=== PATIENT | female | born 1995 | race Caucasian/White ===

== ENCOUNTER 2017-03-09 19:33 | Emergency (ER) | payer OTHER ==
[~2017-03-09] VITALS: Ht 167.6 cm; Wt 77.1 kg
[~2017-03-09 19:33] MED LIST: AZIT-21 PO; CYCL10TA9 PO; DULO30CA PO; DULO30CA48 PO; DULO60CA58 PO; DULO60CA6 PO; EPIN0.3A3 IJ; L-NO1TBD PO; LEVO25TA3 PO; LVT.1T PO; PRD20T PO; PROC-1 PO; SMTR50T PO; TRAM50TA2 PO; [UNRECOGNIZED DRUG - REMARK] PO
[2017-03-09] MEDS: predniSONE 20 MG TAB PO ONE (19:58)
[2017-03-09] MEDS: RT-ALBUTEROL/IPRATROPIUM 3 ML (DUONEB) VIAL INH ONE (21:05)
[2017-03-09] MEDS: DEXAMETHASONE PF 10 MG/ML (DECADRON) VIAL IV STA (22:48)
[2017-03-09] MEDS: diphenhydrAMINE 50 MG/ML INJ (BENADRYL) IV STA (22:48)
[2017-03-09] MEDS: NS IV 500 ML 500 ML IV ONE (22:48)
--- NOTE | 2017-03-09 23:23 | ED General ---
General Chief Complaint: Allergic Reaction Stated Complaint: HAD ALLERGIC REACTION/USED EPIPEN Nursing Triage Note: PT STATES SHE HAD AN ALLERGIC RX TO [facility], ATE THEM ABOUT 30 MINUTES AGO, HAS TAKEN BENADRYL, ZANTAC, PEPCID, AND USED AN EPI PEN AT HOME. STATES SHE DID FEEL LIKE HER THROAT WAS SWOLLEN BUT THAT IT HAS GONE DOWN. Nursing Sepsis Screen: No Definite Risk History of Present Illness Time Seen by Provider: 19:50 Initial Comments Patient reports eating a beef barbecue sandwich that must have had tomato base in the sauce. She immediately stopped eating the sandwich and administered her EpiPen, took Benadryl 50 mg by mouth and Pepcid 10 mg by mouth. She felt like there was some swelling in her throat and lips, she denies any difficulty breathing or rash. Timing/Duration: 1/2 Hour Severity: Mild Modifying Factors: improves with Other (EpiPen) Associated Systoms: No Chest Pain, No Cough, No Diaphoresis, No Fever/Chills, No Headaches, No Loss of Appetite, No Malaise, No Nausea/Vomiting, No Rash, No Seizure, No Shortness of Air, No Syncope, No Weakness Allergies and Home Medications Allergies Coded Allergies: tomato (Verified Allergy, Severe, ANAPHYLAXIS, 11/05/13) Home Medications Azithromycin 250 Mg Tab, 1 TAB PO DAILY, #6 (Reported) Duloxetine HCl 30 Mg Capsule.dr, 3 TAB PO DAILY, #30 (Reported) Duloxetine HCl 60 Mg Capsule.dr, 1 TAB PO DAILY, #30 (Reported) Epinephrine 0.3 Mg/0.3 Ml Auto.injct, 0.3 MG IJ NEEDED PRN for allergic reaction, #2 Ref 0 Prescribed by: MARICRUZ SAHNI on 11/21/152100 Epinephrine 0.3 Mg/0.3 Ml Auto.injct, 0.3 MG IJ PRN PRN for RASH, #1 Ref 2 Prescribed by: RUDY CAMPA on 03/09/17 2324 G-Fmezuop-Tfc Estr/Ethin Estra 1 Each Tbdspk.3mo, 1 TAB PO DAILY, #91 (Reported) Levothyroxine Sodium 25 Mcg Tablet, 1 TAB PO DAILY, #30 (Reported) Prednisone 20 Mg Tab, 20 MG PO TID, #12 Ref 0 Prescribed by: MARICRUZ SAHNI on 11/21/152100 Prochlorperazine Maleate 10 Mg Tablet, 10 MG PO Q6H, #10 Ref 0 Prescribed by: MARICRUZ SAHNI on 04/16/162129 Constitutional: no symptoms reported, see HPI EENTM: mouth swelling, see HPI, throat swelling Respiratory: no symptoms reported, see HPI Cardiovascular: no symptoms reported, see HPI Gastrointestinal: no symptoms reported, see HPI Genitourinary: no symptoms reported, see HPI : No (hormonal IUD) Musculoskeletal: no symptoms reported, see HPI Skin: no symptoms reported, see HPI Psychiatric/Neurological: No Symptoms Reported, See HPI Hematologic/Lymphatic: No Symptoms Reported, See HPI Immunological/Allergic: no symptoms reported, see HPI All Other Systems Reviewed Negative Unless Noted: Yes Past Vbzxusf-Mnjweo-Snpjdq Hx Patient Social History Alcohol Use: Denies Use Recreational Drug Use: No Smoking Status: Never a Smoker Recent Foreign Travel: No Contact w/Someone Who Travel: No Recent Infectious Disease Expo: No Seasonal Allergies Seasonal Allergies: No Surgeries HX Surgeries: Yes (NOSE/EAR, SINUS) Respiratory Hx Respiratory Disorders: No Cardiovascular Hx Cardiac Disorders: No Neurological Hx Neurological Disorders: Yes Neurological Disorders: Headaches /Migraines Reproductive System Hx Reproductive Disorders: No HIV/AIDS: No Genitourinary Hx Genitourinary Disorders: No Gastrointestinal Hx Gastrointestinal Disorders: No Musculoskeletal Hx Musculoskeletal Disorders: No Musculoskeletal Disorders: Fibromyalgia Endocrine Hx Endocrine Disorders: Yes Endocrine Disorders: Hypothyroidsim HEENT HX ENT Disorders: No (SEVERAL PROBLEMS W/ L EAR/CHRONIC SINUS INFECTIONS) Cancer Hx Cancer: No Psychosocial Hx Psychiatric Problems: No Integumentary HX Skin/Integumentary Disorder: No Blood Transfusions Hx Blood Disorders: No Adverse Reaction to a Blood Tr: No Reviewed Nursing Assessment Reviewed/Agree w Nursing PMH: Yes Physical Exam Vital Signs Vital Sign - Last 12Hours 03/09/17 03/09/17 19:41 21:06 Temp 96.3 Pulse 112 Resp 24 B/P (MAP) 128/85 Pulse Ox 98 Capillary Refill : Less Than 3 Seconds General Appearance: WD/WN, Anxious Eyes: Bilateral Eye EOMI, Bilateral Eye Normal Inspection, Bilateral Eye PERRL HEENT: PERRL/EOMI, TMs Normal, Normal ENT Inspection, Pharynx Normal, No Pharyngeal Erythema, No Photophobia, Other (lips and tongue nonswollen.) Neck: Full Range of Motion, Normal Inspection, Non Tender, Supple Respiratory: Chest Non Tender, Lungs Clear, Normal Breath Sounds, No Accessory Muscle Use, No Respiratory Distress Cardiovascular: Regular Rate, Rhythm, No Edema, No Murmur, Normal Peripheral Pulses Gastrointestinal: Normal Bowel Sounds, No Organomegaly, No Pulsatile Mass, Non Tender, Soft Back: Normal Inspection, No Vertebral Tenderness Extremity: Normal Capillary Refill, Normal Inspection, Normal Range of Motion, Non Tender, No Calf Tenderness, No Pedal Edema Neurologic/Psychiatric: Alert, Oriented x3, No Motor/Sensory Deficits, Normal Mood/Affect Skin: Normal Color, Warm/Dry, No Diaphoresis, No Ecchymosis, No Erythema, No Petechia, No Rash Lymphatic: No Adenopathy Progress/Results/Core Measures Results/Orders My Orders Orders - RUDY CAMPA Prednisone Tablet (Deltasone Tablet) (03/09/17 20:00) Albuterol/Ipra Inhalation Soln (Duoneb I (03/09/17 21:00) Svn Sm Volume Nebulizer Rt-Rfs (03/09/17 20:57) Discontinue Request Rt-Rfs (03/09/17 20:57) Diphenhydramine Injection (Benadryl Inje (03/09/17 22:32) Dexamethasone Pf Injection (Decadron Pf (03/09/17 22:32) Saline Lock/Iv-Start (03/09/17 22:32) Ns Iv 500 Ml (Sodium Chloride 0.9%) (03/09/17 22:32) Medications Given in ED Current Medications Medications Dose Ordered Sig/Duc Route Start Time Stop Time Status Last Admin Dose Admin Albuterol/ Ipratropium 3 ml ONCE ONCE INH 03/09/17 21:00 03/09/17 21:01 DC 03/09/17 21:05 3 ML Prednisone 20 mg ONCE ONCE PO 03/09/17 20:00 03/09/17 20:01 DC 03/09/17 19:58 20 MG Sodium Chloride 500 ml @ 0 mls/hr Q0M ONCE IV 03/09/17 22:32 03/09/17 22:34 DC 03/09/17 22:48 999 MLS/HR Vital Signs/I&O Vital Sign - Last 12Hours 03/09/17 03/09/17 19:41 21:06 Temp 96.3 Pulse 112 Resp 24 B/P (MAP) 128/85 Pulse Ox 98 Blood Pressure Mean: 99 Progress Note : Time: 19:50 Progress Note Initial evaluation completed, since patient is already given herself epinephrine , Pepcid and Benadryl, we will add prednisone 20 mg by mouth. We will continue to monitor the patient. She understands that since epinephrine was given we will need to monitor for a total of 4 hours. 2044 patient reports that she feels as though there is something in the back of her throat, she denies any dyspnea, she can articulate well with no feelings that her tongue or lips are swollen. We'll do a DuoNeb breathing treatment. 2114 patient reports that her symptoms have improved slightly she does not feel that there is any dyspnea and she has no rash. She is drinking water without difficulty. 2199 patient is watching TV denies any complaints at this time. 2229 patient reports the sensation of something being in the back of her throat is present again, we will give Decadron 10 mg IV and Benadryl 25 mg IV, and continued to monitor. Lung sounds are clear to auscultation bilaterally and no rash present. 0 patient reports that she is feeling better she is drinking water and eating snack crackers. No dysphagia or dyspnea. 2315 discussed discharge planning with the patient, she has an additional EpiPen at home, and Benadryl and Pepcid if symptoms are to return she will use these immediately, call 911 and return to the emergency department. Departure Impression Impression: Primary Impression: Acute allergic reaction Qualified Codes: T78.40XA - Allergy, unspecified, initial encounter Disposition: HOME, SELF-CARE Condition: Improved Departure-Patient Inst. Referrals: NO,LOCAL PHYSICIAN (PCP/Family) Primary Care Physician Patient Instructions: Food Allergy, Anaphylaxis (DC) Add. Discharge Instructions: Continue to avoid tomatoes. Benadryl 25 mg every 8 hours as needed. Return to emergency department immediately if difficulty breathing, feelings of throat lips or tongue or swelling, wheezing, rash, or any new concerns. All discharge instructions reviewed with patient and/or family. Voiced understanding. Scripts Epinephrine (Epipen 2-Sina) 0.3 Mg/0.3 Ml Auto.injct 0.3 MG IJ PRN Y for RASH, #1 ML 2 Refills Prov: RUDY CAMPA 03/09/17 RUDY CAMPA Mar 09, 2017 23:23
[2017-03-09] MEDS ORDERED: EPIN0.3P3 IJ (23:24)
[2017-03-09 23:34] VITALS: BP 117/77
== END 2017-03-09 23:38 | disposition home or self-care (01) ==
LOC: EDUNIT# 19:33 → ER 19:36
DX: R09.89 Other specified symptoms and signs involving the circulatory and respiratory systems (principal); T78.1XXA Other adverse food reactions, not elsewhere classified, initial encounter; E03.9 Hypothyroidism, unspecified
CPT/HCPCS: 94640; 94664

== ENCOUNTER → 2018-06-06 | Outpatient (CLI) | payer OTHER ==
[~2018-06-06] MED LIST changes: -EPIN0.3A3 IJ; +EPIN0.3P18 IJ; +EPIN0.3P3 IJ
--- NOTE | 2018-06-06 16:10 | Diagnostic Imaging Report ---
PROCEDURE: US Thyroid. TECHNIQUE: Multiple real-time grayscale images were obtained of the thyroid in various projections. INDICATION: Hypothyroidism and dysphagia. FINDINGS: The right lobe of the thyroid measures 3.9 x 1.4 x 1.4 cm and the left lobe measures 4.1 x 1.4 x 1.5 cm. Both lobes demonstrate marked parenchymal heterogeneity. No discrete thyroid mass is detected. IMPRESSION: Heterogeneous thyroid. No discrete mass is detected. Dictated by: Dictated on workstation # [id number]
== END ==
LOC: RAD 15:16
PROVIDERS: ATTEND Nurse Practitioner Family
DX: E03.9 Hypothyroidism, unspecified (principal); R13.10 Dysphagia, unspecified
CPT/HCPCS: 76536

== ENCOUNTER 2019-08-09 07:10 | Emergency (ER) | payer OTHER ==
[~2019-08-09] VITALS: Ht 167.7 cm; Wt 101.8 kg
[2019-08-09] MEDS ORDERED: SULF1TAB35 PO (07:30)
--- NOTE | 2019-08-09 07:30 | ED Integumentary General ---
General Chief Complaint: Skin/Wound Problems Stated Complaint: SKIN INFECTION Source: patient Exam Limitations: no limitations History of Present Illness Date Seen by Provider: Aug 09, 2019 Time Seen by Provider: 07:25 Initial Comments 23-year-old female presents with a small abscess in her navel. She has had this in the past. She reports she been on Keflex for about 4 days. She reports normally gets better in a day or 2 but this time is getting worse. Patient has some mild drainage from it. No other systemic complaints Allergies and Home Medications Allergies Coded Allergies: tomato (Verified Allergy, Severe, ANAPHYLAXIS, 11/05/13) Home Medications Azithromycin 250 Mg Tab, 1 TAB PO DAILY, (Reported) Duloxetine HCl 30 Mg Capsule.dr, 3 TAB PO DAILY, (Reported) Duloxetine HCl 60 Mg Capsule.dr, 1 TAB PO DAILY, (Reported) Epinephrine 0.3 Mg/0.3 Ml Auto.injct, 0.3 MG IJ NEEDED PRN for allergic reaction Prescribed by: MARICRUZ SAHNI on 11/21/152100 Epinephrine 0.3 Mg/0.3 Ml Auto.injct, 0.3 MG IJ PRN PRN for RASH Prescribed by: RUDY CAMPA on 03/09/17 2324 V-Khypizw-Rbg Estr/Ethin Estra 1 Each Tbdspk.3mo, 1 TAB PO DAILY, (Reported) Levothyroxine Sodium 25 Mcg Tablet, 1 TAB PO DAILY, (Reported) Prednisone 20 Mg Tab, 20 MG PO TID Prescribed by: MARICRUZ SAHNI on 11/21/152100 Prochlorperazine Maleate 10 Mg Tablet, 10 MG PO Q6H Prescribed by: MARICRUZ SAHNI on 04/16/162129 Patient Home Medication List Home Medication List Reviewed: Yes Review of Systems Review of Systems Constitutional: No chills, No fever Respiratory: no symptoms reported Cardiovascular: no symptoms reported Gastrointestinal: no symptoms reported Genitourinary: no symptoms reported Skin: see HPI Past Wlvnyyq-Ujvxjm-Hotdod Hx Past Med/Social Hx: Reviewed Nursing Past Med/Soc Hx Patient Social History Recent Foreign Travel: No Contact w/Someone Who Travel: No Seasonal Allergies Seasonal Allergies: No Past Medical History Surgeries: Yes (NOSE/EAR, SINUS) Respiratory: No Cardiac: No Neurological: Yes Headaches /Migraines Reproductive Disorders: No HIV/AIDS: No Gastrointestinal: No Musculoskeletal: No Fibromyalgia Endocrine: Yes Hypothyroidsim Cancer: No Psychosocial: No Integumentary: No Blood Disorders: No Adverse Reaction/Blood Tranf: No Physical Exam Vital Signs Capillary Refill : General Appearance: WD/WN, no apparent distress Cardiovascular: regular rate, rhythm, no edema Respiratory: lungs clear, normal breath sounds Gastrointestinal: soft Skin: other (small abscess/induration with mild erythema and drainage in the navel.) Departure Impression Primary Impression: Cutaneous abscess of abdominal wall Disposition: HOME, SELF-CARE Condition: Stable Departure-Patient Inst. Referrals: TERESA MAHMOOD MD (PCP) Primary Care Physician [employer] STUDENT [facility] (Family) Primary Care Physician Patient Instructions: Folliculitis (DC), Skin Abscess Scripts Sulfamethoxazole/Trimethoprim (Bactrim Ds Tablet) 1 Each Tablet 1 EACH PO BID for 10 Days, #20 TAB Prov: ASHTYN CRUZ DO 08/09/19 ASHTYN CRUZ DO Aug 09, 2019 07:30 POS
[2019-08-09 07:34] VITALS: BP 131/80
== END 2019-08-09 07:34 | disposition home or self-care (01) ==
LOC: EDUNIT# 07:10 → ER 07:11
DX: L02.211 Cutaneous abscess of abdominal wall (principal); G43.909 Migraine, unspecified, not intractable, without status migrainosus; M79.7 Fibromyalgia; E03.9 Hypothyroidism, unspecified; Z79.52 Long term (current) use of systemic steroids
CPT/HCPCS: 99282

== ENCOUNTER → 2020-08-17 | Outpatient (CLI) | payer OTHER ==
[~2020-08-17] MED LIST changes: +SULF1TAB35 PO
--- NOTE | 2020-08-17 11:25 | Diagnostic Imaging Report ---
INDICATION: survey. TECHNIQUE: Multiple Real-time grayscale images were obtained over the gravid uterus. COMPARISON: None. FINDINGS: There is a single live fetus in a cephalic presentation. The heart rate was recorded 134 BPM. The placenta is anterior. The amniotic fluid volume is normal. The cervical length is 5.7 cm. The kidneys, bladder, and stomach are unremarkable. The brain is unremarkable. There is a three-vessel cord with normal insertion. The spine is unremarkable. The four-chamber heart view is somewhat limited. Biometrical measurements are as follows: Biparietal 4.58 cm, age 19 weeks 6 days. Head circumference 16.26 cm, age 19 weeks 1 days. Abdominal circumference 15.02 cm, age 20 weeks 2 days. Femur length 3.09 cm, age 19 weeks 5 days. Sonographic estimate age: 19 weeks 6 days. Sonographic estimated date of delivery: 01/05/2021. Estimated Weight: 317 gm (+/- 46 gm). LMP percentile: 23%. heart rate: 134 beats per minute. number: 1 of 1. IMPRESSION: Single live IUP of 19 weeks 6 days gestational age. The estimated date of confinement sonographically is 01/05/2021. The survey is unremarkable although the four-chamber heart view is somewhat limited. Dictated by: Dictated on workstation # [id number]
== END ==
LOC: RAD 10:00
PROVIDERS: ATTEND Obstetrics & Gynecology
DX: Z34.02 Encounter for supervision of normal first pregnancy, second trimester (principal); Z3A.19 19 weeks gestation of pregnancy
CPT/HCPCS: 76805

== ENCOUNTER 2020-09-22 21:47 | Emergency (ER) | payer OTHER ==
[~2020-09-22] VITALS: Ht 167.6 cm; Wt 111.5 kg
[2020-09-22] MEDS ORDERED: LACTATED RINGERS 1,000 ML IV ONE (22:00)
[2020-09-22] MEDS ORDERED: hydrOXYzine (VISTARIL/ATARAX) 25 MG capsule/tablet PO ONE (22:00)
[2020-09-22] MEDS ORDERED: LORATADINE (CLARITIN) 10 MG TAB PO ONE (22:00)
--- NOTE | 2020-09-22 22:02 | ED General ---
General Chief Complaint: Allergic Reaction Stated Complaint: SWOLLEN TONGUE/RACING HEART BEAT/SOA/25 WEEKS PREG Source of Information: Patient Exam Limitations: No Limitations History of Present Illness Date Seen by Provider: Sep 22, 2020 Time Seen by Provider: 21:47 Initial Comments The patient presents to the ER by private conveyance from home with chief complaint that she feels her tongue is swelling and that she is having a minor reaction to her known allergen tomatoes. She ate some pizza from [employer] that was not supposed to have any tomatoes on it. Her symptoms started about an hour ago shortly after she ate. She says she was doing okay and did not feel the need to use her EpiPen however her felt that she was having a swollen cheeks and tongue and wanted her to be checked out. She took Benadryl 2 tablets at 530, 4-1/2 hours ago related to some sinus congestion she has been experiencing. She is 25 weeks and had a neurology appointment about a week ago regarding her migraines that are chronic. She is not having a headache at this time. She is not having a difficult time breathing but felt like she was wheezing. Allergies and Home Medications Allergies Coded Allergies: tomato (Verified Allergy, Severe, ANAPHYLAXIS, 11/05/13) Home Medications Azithromycin 250 Mg Tab, 1 TAB PO DAILY, (Reported) Duloxetine HCl 30 Mg Capsule.dr, 3 TAB PO DAILY, (Reported) Duloxetine HCl 60 Mg Capsule.dr, 1 TAB PO DAILY, (Reported) Epinephrine 0.3 Mg/0.3 Ml Auto.injct, 0.3 MG IJ NEEDED PRN for allergic reaction Prescribed by: MARICRUZ SAHNI on 11/21/152100 Epinephrine 0.3 Mg/0.3 Ml Auto.injct, 0.3 MG IJ PRN PRN for RASH Prescribed by: RUDY CAMPA on 03/09/17 2324 L-Hjmctjz-Pno Estr/Ethin Estra 1 Each Tbdspk.3mo, 1 TAB PO DAILY, (Reported) Levothyroxine Sodium 25 Mcg Tablet, 1 TAB PO DAILY, (Reported) Prednisone 20 Mg Tab, 20 MG PO TID Prescribed by: MARICRUZ SAHNI on 11/21/152100 Prochlorperazine Maleate 10 Mg Tablet, 10 MG PO Q6H Prescribed by: MARICRUZ SAHNI on 04/16/162129 Sulfamethoxazole/Trimethoprim 1 Each Tablet, 1 EACH PO BID Prescribed by: ASHTYN CRUZ on 08/09/19 6133 Patient Home Medication List Home Medication List Reviewed: Yes Review of Systems Review of Systems Constitutional: No chills, No diaphoresis EENTM: No ear discharge, No ear pain Respiratory: No cough; short of breath Cardiovascular: No chest pain, No edema, No Hx of Intervention, No palpitations Gastrointestinal: No abdominal pain, No nausea Genitourinary: No discharge, No dysuria Musculoskeletal: No back pain, No joint pain Immunological/Allergic: see HPI, food allergy All Other Systems Reviewed Negative Unless Noted: Yes Past Nqmgkxj-Hmekfn-Rdlfve Hx Patient Social History Alcohol Use: Denies Use Recreational Drug Use: No 2nd Hand Smoke Exposure: No Recent Foreign Travel: No Contact w/Someone Who Travel: No Physical Abuse: No Sexual Abuse: No Mistreated: No Fear: No Immunizations Up To Date Tetanus Booster (TDap): Unknown PED Vaccines UTD: Yes Seasonal Allergies Seasonal Allergies: Yes Past Medical History Surgeries: Yes (NOSE/EAR, SINUS) Respiratory: No Cardiac: No Neurological: Yes Headaches /Migraines Reproductive Disorders: No HIV/AIDS: No Gastrointestinal: No Musculoskeletal: No Fibromyalgia Endocrine: Yes Hypothyroidsim Cancer: No Psychosocial: Yes Anxiety, Depression Integumentary: No Blood Disorders: No Adverse Reaction/Blood Tranf: No Physical Exam Vital Signs Vital Signs - First Documented 09/22/20 21:50 Temp 36.2 Pulse 117 Resp 20 B/P (MAP) 133/104 (114) Pulse Ox 96 O2 Delivery Room Air Capillary Refill : Height, Weight, BMI Height: 5'6.00" Weight: 170lbs. oz. 77.294200il; 36.00 BMI Method:Stated General Appearance: WD/WN, Anxious, Mild Distress Eyes: Bilateral Eye Normal Inspection, Bilateral Eye PERRL, Bilateral Eye EOMI HEENT: PERRL/EOMI, Pharynx Normal, Moist Mucous Membranes, Other (No tenderness to palpation over the sinuses frontal, or maxillary) Neck: Full Range of Motion, Normal Inspection, Non Tender, Supple Respiratory: Lungs Clear, Normal Breath Sounds, No Accessory Muscle Use, No Respiratory Distress Cardiovascular: Regular Rate, Rhythm, Normal Peripheral Pulses Extremity: Normal Capillary Refill, Normal Inspection Neurologic/Psychiatric: Alert, Oriented x3, No Motor/Sensory Deficits Skin: Normal Color, Warm/Dry Progress/Results/Core Measures Suspected Sepsis SIRS Temperature: Pulse: Respiratory Rate: Laboratory Tests 09/22/20 21:55: White Blood Count 8.1 Blood Pressure / Mean: Laboratory Tests 09/22/20 21:55: Creatinine 0.60, Platelet Count 265, Total Bilirubin 0.2 Results/Orders Lab Results Laboratory Tests Test 09/22/20 21:55 Range/Units White Blood Count 8.1 4.3-11.0 10^3/uL Red Blood Count 3.62 L 3.80-5.11 10^6/uL Hemoglobin 10.3 L 11.5-16.0 g/dL Hematocrit 31 L 35-52 % Mean Corpuscular Volume 86 80-99 fL Mean Corpuscular Hemoglobin 29 25-34 pg Mean Corpuscular Hemoglobin Concent 33 32-36 g/dL Red Cell Distribution Width 12.6 10.0-14.5 % Platelet Count 265 130-400 10^3/uL Mean Platelet Volume 10.2 9.0-12.2 fL Immature Granulocyte % (Auto) 1 % Neutrophils (%) (Auto) 66 42-75 % Lymphocytes (%) (Auto) 26 12-44 % Monocytes (%) (Auto) 7 0-12 % Eosinophils (%) (Auto) 1 0-10 % Basophils (%) (Auto) 0 0-10 % Neutrophils # (Auto) 5.3 1.8-7.8 10^3/uL Lymphocytes # (Auto) 2.1 1.0-4.0 10^3/uL Monocytes # (Auto) 0.6 0.0-1.0 10^3/uL Eosinophils # (Auto) 0.1 0.0-0.3 10^3/uL Basophils # (Auto) 0.0 0.0-0.1 10^3/uL Immature Granulocyte # (Auto) 0.0 0.0-0.1 10^3/uL Sodium Level 138 135-145 MMOL/L Potassium Level 3.7 3.6-5.0 MMOL/L Chloride Level 110 H 98-107 MMOL/L Carbon Dioxide Level 17 L 21-32 MMOL/L Anion Gap 11 5-14 MMOL/L Blood Urea Nitrogen 5 L 7-18 MG/DL Creatinine 0.60 0.60-1.30 MG/DL Estimat Glomerular Filtration Rate > 60 BUN/Creatinine Ratio 8 Glucose Level 102 70-105 MG/DL Calcium Level 8.7 8.5-10.1 MG/DL Corrected Calcium 9.1 8.5-10.1 MG/DL Total Bilirubin 0.2 0.1-1.0 MG/DL Aspartate Amino Transf (AST/SGOT) 13 5-34 U/L Alanine Aminotransferase (ALT/SGPT) 13 0-55 U/L Alkaline Phosphatase 79 40-136 U/L Total Protein 6.3 L 6.4-8.2 GM/DL Albumin 3.5 3.2-4.5 GM/DL My Orders Orders - PATRICK WATTS Ed Iv/Invasive Line Start (09/22/20 21:57) Lactated Ringers (Lr 1000 Ml Iv Solution (09/22/20 22:00) Loratadine Tablet (Claritin Tablet) (09/22/20 22:00) Hydroxyzine Cap/Tab (Vistaril) (09/22/20 22:00) Cbc With Automated Diff (09/22/20 22:02) Comprehensive Metabolic Panel (09/22/20 22:02) Medications Given in ED Current Medications Medications Dose Ordered Sig/Duc Route Start Time Stop Time Status Last Admin Dose Admin Hydroxyzine Pamoate 25 mg ONCE ONCE PO 09/22/20 22:00 09/22/20 22:01 DC 09/22/20 22:03 25 MG Lactated Ringer's 1,000 ml @ 0 mls/hr Q0M ONCE IV 09/22/20 22:00 09/22/20 22:01 DC 09/22/20 22:02 1,000 MLS/HR Loratadine 10 mg ONCE ONCE PO 09/22/20 22:00 09/22/20 22:01 DC 09/22/20 22:05 10 MG Vital Signs/I&O 09/22/20 21:50 Temp 36.2 Pulse 117 Resp 20 B/P (MAP) 133/104 (114) Pulse Ox 96 O2 Delivery Room Air Capillary Refill : Progress Note #1: Time: 22:00 Progress Note The patient was tachypneic when she arrived however her throat and retropharynx are normal mildly injected and without significant glossal swelling or other airway obstruction. She has no stridor or wheezing. Her oxygen sats are 100% on room air. Suspect she is having a little anxiety attack and were going to give her some Vistaril which we will do dual duty as well as loratadine. Plan to check some basic labs and observe her for a short while. She is already coming down after some gentle coaching. Progress Note #2: Time: 22:30 Progress Note After a period of observation the patient's symptoms are improving. She has not had any worsening symptoms. She has no longer hyperventilating and she is ready to go home. We are going to allow her to go home. She says she is lives a couple blocks away and has someone who stays with her. She also has her EpiPen in her purse. We have given return precautions Departure Impression Primary Impression: Acute allergic reaction Qualified Codes: T78.40XA - Allergy, unspecified, initial encounter Disposition: 01 HOME, SELF-CARE Condition: Stable Departure-Patient Inst. Decision time for Depature: 22:31 Referrals: TERESA MAHMOOD MD (PCP/Family) Primary Care Physician Patient Instructions: Allergic Reaction ED Add. Discharge Instructions: By 11PM you may take another 1 to 2 tablets of Benadryl if necessary for worseni ng symptoms. Continue taking loratadine 10 mg or cetirizine 10 mg daily until your symptoms resolved. If you're having worsening symptoms or difficulty breathing you may take a dose of epinephrine and return to the ER for further evaluation. All discharge instructions reviewed with patient and/or family. Voiced understanding. PATRICK WATTS Sep 22, 2020 22:02
[2020-09-22 22:10] LABS: BASOPHILS % (AUTO) 0 % (0-10); EOSINOPHILS # (AUTO) 0.1 10^3/uL (0.0-0.3); EOSINOPHILS % (AUTO) 1 % (0-10); HEMATOCRIT 31 % (35-52); HEMOGLOBIN 10.3 g/dL (11.5-16.0); LYMPHOCYTES # (AUTO) 2.1 10^3/uL (1.0-4.0); LYMPHOCYTES % (AUTO) 26 % (12-44); MEAN CORPUSCULAR HEMOGLOBIN 29 pg (25-34); MEAN CORPUSCULAR HGB CONC 33 g/dL (32-36); MEAN CORPUSCULAR VOLUME 86 fL (80-99); MEAN PLATELET VOLUME 10.2 fL (9.0-12.2); MONOCYTES # (AUTO) 0.6 10^3/uL (0.0-1.0); MONOCYTES % (AUTO) 7 % (0-12); NEUTROPHILS # (AUTO) 5.3 10^3/uL (1.8-7.8); NEUTROPHILS % (AUTO) 66 % (42-75); PLATELET COUNT 265 10^3/uL (130-400); WHITE BLOOD COUNT 8.1 10^3/uL (4.3-11.0)
[2020-09-22 22:14] LABS: ALBUMIN 3.5 GM/DL (3.2-4.5)
[2020-09-22 22:15] LABS: CHLORIDE 110 MMOL/L (98-107); POTASSIUM 3.7 MMOL/L (3.6-5.0); SODIUM 138 MMOL/L (135-145)
[2020-09-22 22:16] LABS: CALCIUM 8.7 MG/DL (8.5-10.1)
[2020-09-22 22:17] LABS: GLUCOSE 102 MG/DL (70-105); TOTAL PROTEIN 6.3 GM/DL (6.4-8.2)
[2020-09-22 22:18] LABS: CARBON DIOXIDE 17 MMOL/L (21-32)
[2020-09-22 22:19] LABS: BILIRUBIN,TOTAL 0.2 MG/DL (0.1-1.0)
[2020-09-22 22:20] LABS: ALKALINE PHOSPHATASE 79 U/L (40-136)
[2020-09-22 22:21] LABS: GFR ESTIMATED > 60
[2020-09-22 22:22] LABS: BUN/CREATININE RATIO 8
[2020-09-22 22:23] LABS: ALANINE AMINOTRANSFERASE 13 U/L (0-55)
[2020-09-22 22:38] VITALS: BP 110/70
== END 2020-09-22 22:43 | disposition home or self-care (01) ==
LOC: EDUNIT# 21:47 → ER 21:49
DX: T78.40XA Allergy, unspecified, initial encounter (principal); F41.9 Anxiety disorder, unspecified; F32.9 Major depressive disorder, single episode, unspecified; E03.9 Hypothyroidism, unspecified; Z79.890 Hormone replacement therapy; Z79.52 Long term (current) use of systemic steroids
CPT/HCPCS: 36415; 80053; 85025

== ENCOUNTER 2020-10-06 08:13 | Emergency (ER) | payer OTHER ==
[~2020-10-06] VITALS: Ht 167.7 cm; Wt 111.3 kg
[2020-10-06] MEDS ORDERED: LIDOCAINE 1% INJ 20 ML 20 ML VIAL INJ ONE (08:45)
--- NOTE | 2020-10-06 08:48 | ED Integumentary General ---
General Chief Complaint: Skin/Wound Problems Stated Complaint: ABCESS ON [facility] Nursing Triage Note: AMB TO ROOM REPORTS IS APX 27 WEEKS PREG HAS A ABSCESS ON BACK AREA AROUND BUTTOCKS. WAS SEEN AT URGENT CARE YESTERDAY AND STARTED ON KEFLEX Source: patient Exam Limitations: no limitations History of Present Illness Date Seen by Provider: Oct 06, 2020 Time Seen by Provider: 08:35 Initial Comments Here with report of area of pain and swelling to the upper buttocks region at midline. Concern for abscess. Started on cephalexin yesterday but pain is worsened. She is [address] weeks [address] CALI. Denies having ever having anything like this before. Denies problems with bowel movements or dysuria. Denies fever chills. Has had some nausea and vomiting secondary to pain. Timing/Duration: other (3 to 4 days) Severity: moderate Location: genitalia (Midline upper buttock) Possible Cause: no cause identified Associated Symptoms: No fever Allergies and Home Medications Allergies Coded Allergies: tomato (Verified Allergy, Severe, ANAPHYLAXIS, 11/05/13) Home Medications Azithromycin 250 Mg Tab, 1 TAB PO DAILY, (Reported) Duloxetine HCl 30 Mg Capsule.dr, 3 TAB PO DAILY, (Reported) Duloxetine HCl 60 Mg Capsule.dr, 1 TAB PO DAILY, (Reported) Epinephrine 0.3 Mg/0.3 Ml Auto.injct, 0.3 MG IJ NEEDED PRN for allergic reaction Prescribed by: MARICRUZ SAHNI on 11/21/152100 Epinephrine 0.3 Mg/0.3 Ml Auto.injct, 0.3 MG IJ PRN PRN for RASH Prescribed by: RUDY CAMPA on 03/09/17 2324 L-Qyqyhmm-Ona Estr/Ethin Estra 1 Each Tbdspk.3mo, 1 TAB PO DAILY, (Reported) Levothyroxine Sodium 25 Mcg Tablet, 1 TAB PO DAILY, (Reported) Prednisone 20 Mg Tab, 20 MG PO TID Prescribed by: MARICRUZ SAHNI on 11/21/152100 Prochlorperazine Maleate 10 Mg Tablet, 10 MG PO Q6H Prescribed by: MARICRUZ SAHNI on 04/16/162129 Sulfamethoxazole/Trimethoprim 1 Each Tablet, 1 EACH PO BID Prescribed by: ASHTYN CRUZ on 08/09/19 0730 Patient Home Medication List Home Medication List Reviewed: Yes Review of Systems Review of Systems Constitutional: No chills, No fever Respiratory: no symptoms reported Cardiovascular: no symptoms reported Gastrointestinal: nausea, vomiting Genitourinary: no symptoms reported Expected Date of Delivery: Mar 02, 2021 Skin: see HPI, lesions; No pruritus, No rash Psychiatric/Neurological: No Symptoms Reported Past Zjicdbv-Ahfyub-Sxboyi Hx Past Med/Social Hx: Reviewed Nursing Past Med/Soc Hx Patient Social History Alcohol Use: Denies Use Recreational Drug Use: No Smoking Status: Never a Smoker 2nd Hand Smoke Exposure: No Recent Foreign Travel: No Contact w/Someone Who Travel: No Recent Infectious Disease Expo: No Immunizations Up To Date Tetanus Booster (TDap): Unknown PED Vaccines UTD: Yes Seasonal Allergies Seasonal Allergies: Yes Past Medical History Surgeries: Yes (NOSE/EAR, SINUS) Respiratory: No Cardiac: No Neurological: Yes Headaches /Migraines : Yes Expected Date of Delivery: Mar 02, 2021 Last Menstrual Period: Mar 02, 2020 Hx : 1 Hx Para: 0 Reproductive Disorders: No HIV/AIDS: No Gastrointestinal: No Musculoskeletal: No Fibromyalgia Endocrine: Yes Hypothyroidsim Cancer: No Psychosocial: Yes Anxiety, Depression Integumentary: No Blood Disorders: No Adverse Reaction/Blood Tranf: No Family Medical History Reviewed Nursing Family Hx Physical Exam Vital Signs Vital Signs - First Documented 10/06/20 08:25 Temp 35.8 Pulse 100 Resp 18 B/P (MAP) 138/78 (98) Pulse Ox 98 O2 Delivery Room Air Capillary Refill : Less Than 3 Seconds General Appearance: WD/WN, no apparent distress Cardiovascular: regular rate, rhythm, no murmur Respiratory: lungs clear, normal breath sounds Skin: warm/dry, other (2 x 3 cm area of induration/fluctuance to the midline upper buttock region consistent with pilonidal cyst. Mild surrounding erythema.) Procedures/Interventions I&D : Site: Midline upper buttocks Blade Size: 11 I & D Procedure: betadine prep, sterile drapes applied, gauze wick placed, Wound Packing Packing/Drain: Plain Packing 1/2 Progress Wound prepped with iodine. Anesthetized with 12 mL of lidocaine local surrounding cyst/abscess. 2 cm incision vertically to the cyst at the upper buttock. Large amount of purulent drainage obtained. Loculations broken with Sheila forceps and gauze. Cavity flushed with 150 mL of normal saline. Packed with half-inch plain packing and covered with gauze and dressing. Patient tolerated procedure well with no complications. Wound culture obtained. Progress/Results/Core Measures Results/Orders My Orders Orders - KANDICE TENA MD Wound Culture (10/06/20 08:44) Lidocaine 1% Inj 20 Ml (Xylocaine 1% Inj (10/06/20 08:45) Vital Signs/I&O 10/06/20 08:25 Temp 35.8 Pulse 100 Resp 18 B/P (MAP) 138/78 (98) Pulse Ox 98 O2 Delivery Room Air Blood Pressure Mean: 98 Progress Progress Note : Progress Note Seen and evaluated. I did discuss the risk and benefits of I&D including l idocaine administration while . Patient accepts risks and would like to pursue I&D. 0927: I&D complete. Tolerated procedure well with no complications. Discharged home with return precautions. Patient verbalized understanding of instructions and agreement with plan. Departure Impression Primary Impression: Pilonidal cyst with abscess Additional Impression: Encounter for incision and drainage procedure Disposition: HOME, SELF-CARE Condition: Improved Departure-Patient Inst. Decision time for Depature: 09:21 Referrals: TERESA MAHMOOD MD (PCP/Family) Primary Care Physician Patient Instructions: Pilonidal Cyst (DC), Abscess Incision and Drainage ED Add. Discharge Instructions: All discharge instructions reviewed with patient and/or family. Voiced understanding. Continue antibiotics as previously prescribed. Return in 2 days for recheck and further evaluation and for packing removal. You may take the prescribed pain medicine as prescribed. If you are not taking that, then you may take Tylenol/acetaminophen 1000 mg every 6-8 hours as needed for pain. Do not take both at the same time as they both have acetaminophen in them. You may change top dressing as needed if it becomes soiled. Keep packing in place. Clean after bowel movements with a shower sprayer or similar. Do not vigorously scrub area. If packing were to come out, it is okay but you will need to clean the area a few times daily with the gentle warm water spray. Return for worse pain, fever, vomiting, difficulty with going to the bathroom or other concerns as needed. Scripts Hydrocodone/Acetaminophen (Hydrocodone-Acetamin 5-325 mg) 1 Each Tablet 1 EACH PO Q6H PRN for PAIN-MODERATE (5-7), #8 TAB 0 Refills Prov: KANDICE TENA MD 10/06/20 Copy Copies To 1: CLYDE CALI TIMOTHY D MD Oct 06, 2020 08:48
[2020-10-06] MEDS ORDERED: ACHD5005 PO (09:24)
[2020-10-06 09:33] VITALS: BP 138/78
== END 2020-10-06 09:32 | disposition home or self-care (01) ==
LOC: EDUNIT# 08:13 → ER 08:17
DX: O99.712 Diseases of the skin and subcutaneous tissue complicating pregnancy, second trimester (principal); L05.01 Pilonidal cyst with abscess; O21.2 Late vomiting of pregnancy; O99.342 Other mental disorders complicating pregnancy, second trimester; F41.9 Anxiety disorder, unspecified; F32.9 Major depressive disorder, single episode, unspecified; O99.282 Endocrine, nutritional and metabolic diseases complicating pregnancy, second trimester; E03.9 Hypothyroidism, unspecified; Z79.2 Long term (current) use of antibiotics; Z79.52 Long term (current) use of systemic steroids; Z79.890 Hormone replacement therapy; Z3A.27 27 weeks gestation of pregnancy
CPT/HCPCS: 10061; 87070; 87205

== ENCOUNTER 2020-10-08 08:10 | Emergency (ER) | payer OTHER ==
[~2020-10-08] VITALS: Ht 167.7 cm; Wt 111.1 kg
[~2020-10-08 08:10] MED LIST changes: +ACHD5005 PO
--- NOTE | 2020-10-08 08:51 | ED Integumentary General ---
General Chief Complaint: Skin/Wound Problems Stated Complaint: ABSCESS ON TAILBONE Nursing Triage Note: PT AMB TO RM 6 FOR WOUND CHECK AND WORSENING PAIN. PT WAS SEEN HERE A FEW DAYS AND HAD ABSCESS DRAINED AND PACKED. STATES WAS INSTRUCTED TO COME BACK TO HAVE WOUND CHECKED AND PACKING REMOVED. STATES SHE IS HAVING INCREASING PAIN. Source: patient Exam Limitations: no limitations (JAQUELINE RECINOS MED STUDENT) History of Present Illness Date Seen by Provider: Oct 08, 2020 Time Seen by Provider: 08:35 Initial Comments 24 y/o at 27 weeks gestational age presents to the Emergency Department for complaints of a skin abscess. Pt states the abscess on her tailbone was incised and drained 2 days ago. Pt was taking Keflex because of her . Pt noticed her pain returned as 6/10 pain that was throbbing and burning. She and her significant other had been changing the dressings every 2-4 hours because the 4x4's were saturated with blood and yellow pus. Pt had chills, sweating, exhaustion, and lethargy. Pt felt like she had a fever but denies a high temperature. Pain is worse with touching and hydrocodeine helped until yesterday. Pt had previous belly button abscess from a scratch that burst on it's own and pt took antibiotics. PMHx: hypothyroid, food allergy, depression, PSHx: ear and sinus surgeries FamHx: hyperthyroid, heart condition, migraines Meds: levothyroxin (175 mg), Prozac,, propranolol, reglan, iron, keflex, hydrocodeine allergy to meds: none SocHx: former smoker, no alcohol, no drugs (JAQUELINE RECINOS MED STUDENT) Allergies and Home Medications Allergies Coded Allergies: tomato (Verified Allergy, Severe, ANAPHYLAXIS, 11/05/13) Home Medications Azithromycin 250 Mg Tab, 1 TAB PO DAILY, (Reported) Duloxetine HCl 30 Mg Capsule.dr, 3 TAB PO DAILY, (Reported) Duloxetine HCl 60 Mg Capsule.dr, 1 TAB PO DAILY, (Reported) Epinephrine 0.3 Mg/0.3 Ml Auto.injct, 0.3 MG IJ NEEDED PRN for allergic reaction Prescribed by: MARICRUZ SAHNI on 11/21/152100 Epinephrine 0.3 Mg/0.3 Ml Auto.injct, 0.3 MG IJ PRN PRN for RASH Prescribed by: RUDY CAMPA on 03/09/17 2324 Hydrocodone/Acetaminophen 1 Each Tablet, 1 EACH PO Q6H PRN for PAIN-MODERATE (5- 7) Prescribed by: KANDICE TENA on 10/06/20 0925 Hydrocodone/Acetaminophen 1 Each Tablet, 1 EACH PO Q6H PRN for PAIN-MODERATE (5- 7) Prescribed by: TEX SHORT on 10/08/20 0946 R-Qgvjzdl-Avf Estr/Ethin Estra 1 Each Tbdspk.3mo, 1 TAB PO DAILY, (Reported) Levothyroxine Sodium 25 Mcg Tablet, 1 TAB PO DAILY, (Reported) Prednisone 20 Mg Tab, 20 MG PO TID Prescribed by: MARICRUZ SAHNI on 11/21/15 210 Prochlorperazine Maleate 10 Mg Tablet, 10 MG PO Q6H Prescribed by: MARICRUZ SAHNI on 04/16/16 213 Sulfamethoxazole/Trimethoprim 1 Each Tablet, 1 EACH PO BID Prescribed by: ASHTYN CRUZ on 08/09/19 0730 Sulfamethoxazole/Trimethoprim 1 Each Tablet, 1 EACH PO BID Prescribed by: TEX SHORT on 10/08/20 0945 Patient Home Medication List Home Medication List Reviewed: Yes (TEX MANCERA MD) Review of Systems Review of Systems Constitutional: chills, diaphoresis, malaise, other (feverish) Skin: lesions (drainage from abscess) (JAQUELINE RECINOS STUDENT) EENTM: no symptoms reported Respiratory: no symptoms reported Cardiovascular: no symptoms reported Gastrointestinal: no symptoms reported Genitourinary: no symptoms reported : Yes Musculoskeletal: no symptoms reported Skin: see HPI Psychiatric/Neurological: No Symptoms Reported (TEX MANCERA MD) Past Vwvefya-Eogutz-Lkpwwl Hx Past Med/Social Hx: Reviewed Nursing Past Med/Soc Hx (TEX MANCERA MD) Patient Social History Alcohol Use: Denies Use Recreational Drug Use: No Smoking Status: Former Smoker (1-2 cigarettes/day for 3 months in 2012) Type Used: Cigarettes 2nd Hand Smoke Exposure: No Recent Foreign Travel: No Contact w/Someone Who Travel: No Recent Infectious Disease Expo: No (JAQUELINE RECINOS STUDENT) Immunizations Up To Date Tetanus Booster (TDap): Unknown PED Vaccines UTD: Yes (JAQUELINE RECINOS [employer] STUDENT) Seasonal Allergies Seasonal Allergies: Yes (JAQUELINE RECINOS [employer] STUDENT) Past Medical History Surgeries: Yes (NOSE/EAR, SINUS) Respiratory: No Cardiac: No Neurological: Yes Headaches /Migraines Reproductive Disorders: No HIV/AIDS: No Gastrointestinal: No Musculoskeletal: No Fibromyalgia Endocrine: Yes Hypothyroidsim Cancer: No Psychosocial: Yes Anxiety, Depression Integumentary: No Blood Disorders: No Adverse Reaction/Blood Tranf: No (JAQUELINE RECINOS [employer] STUDENT) Family Medical History Heart Disease, Migraines, Other Conditions/Hx (yperthyroidism) (JAQUELINE RECINOS [employer] STUDENT) Physical Exam Vital Signs Vital Signs - First Documented 10/08/20 08:21 Temp 36.1 Pulse 90 Resp 20 B/P (MAP) 123/82 (96) Pulse Ox 95 O2 Delivery Room Air (TEX MANCERA MD) Vital Signs Capillary Refill : Less Than 3 Seconds (JAQUELINE RECINOS [employer] STUDENT) General Appearance: WD/WN, no apparent distress HEENT: normal ENT inspection Cardiovascular: regular rate, rhythm, no edema, no murmur Respiratory: lungs clear, normal breath sounds, no respiratory distress Extremities: normal inspection Neurologic/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 No local associated inflammation) (TEX MANCERA MD) Progress/Results/Core Measures Results/Orders My Orders Orders - TEX MANCERA MD Hydrocodone/Apap 5/325 Tablet (Lortab 5 (10/08/20 09:45) (TEX MANCERA MD) Medications Given in ED Current Medications Medications Dose Ordered Sig/Duc Route Start Time Stop Time Status Last Admin Dose Admin Acetaminophen/ Hydrocodone Bitart 1 tab ONCE ONCE PO 10/08/20 09:45 10/08/20 09:46 DC 10/08/20 09:43 1 TAB (TEX MANCERA MD) Vital Signs/I&O 10/08/20 10/08/20 08:21 09:59 Temp 36.1 36.1 Pulse 90 90 Resp 20 20 B/P (MAP) 123/82 (96) 123/82 (96) Pulse Ox 95 95 O2 Delivery Room Air (TEX MANCERA MD) Blood Pressure Mean: 96 Progress Progress Note : Time: 09:00 Progress Note Abscess - The packing was removed and the wound was cleaned externally. No new packing was used. Sitz baths are recommended. Discontinue Keflex. Start Bactrim, stop before delivery. Start hydrocodone Dr. Barr was consulted for antibiotics and pain medication. See general surgeon after abscess has healed and after delivery of baby. (JAQUELINE RECINOS MED STUDENT) Progress Note : Progress Note Packing was removed. I discussed management of the condition with Dr. Barr who recommended Tylenol 3 or hydrocodone for pain. He was agreeable to adding Bactrim. Cultures were reviewed. (TEX MANCERA MD) Departure Impression Primary Impression: Pilonidal cyst with abscess Disposition: 01 HOME, SELF-CARE Condition: Improved Departure-Patient Inst. Decision time for Depature: 09:41 (TEX MANCERA MD) Referrals: TERESA MAHMOOD MD (PCP/Family) Primary Care Physician Patient Instructions: Pilonidal Cyst (DC) Add. Discharge Instructions: For mild pain use Tylenol (acetaminophen) up to 1000 mg every 6 hours as needed. For more severe pain use hydrocodone as prescribed. Follow-up with the emergency room or one of your outpatient providers tomorrow to review culture results. Hopefully the final culture result will be available at that time. In the meantime, start the Bactrim as prescribed. Take your first dose as soon as you pick it up this morning. Also continue with Keflex as previously prescribed. Do sitz bath's 2-4 times per day for at least 20 minutes. Put a squirt or two of chlorhexidine soap in the bath water. This may be purchased [id number]-zkiourg at pharmacies as well. Follow-up with a general surgeon after delivery to discuss resection of the cyst to avoid recurrence of abscesses. Return to the emergency room if you have escalating symptoms or develop new symptoms such as fevers over 100 degrees. Call with any other questions or concerns. All discharge instructions reviewed with patient and/or family. Voiced understanding. Scripts Hydrocodone/Acetaminophen (Hydrocodone-Acetamin 5-325 mg) 1 Each Tablet 1 EACH PO Q6H PRN for PAIN-MODERATE (5-7), #10 TAB Prov: TEX MANCERA MD 10/08/20 Sulfamethoxazole/Trimethoprim (Bactrim Ds Tablet) 1 Each Tablet 1 EACH PO BID, #14 TAB Prov: TEX MANCERA MD 10/08/20 Medical student attestation and attending note: I have personally interviewed and examined this patient along with Jaqueline Recinos, MS 3. I agree with her documentation except where otherwise noted. (TEX MANCERA MD) Copy Copies To 1: CLYDE BARR DO Copies To 2: TERESA MAHMOOD MD, ELIZABETH X MED STUDENT Oct 08, 2020 08:51 TEX MANCERA MD Oct 08, 2020 09:44
[2020-10-08] MEDS ORDERED: HYDROcodone/APAP 5 MG/325 MG (LORTAB) TAB PO ONE (09:45)
[2020-10-08] MEDS ORDERED: SULF1TAB35 PO (09:45)
[2020-10-08] MEDS ORDERED: ACHD5005 PO (09:45)
[2020-10-08 09:59] VITALS: BP 123/82
== END 2020-10-08 09:59 | disposition home or self-care (01) ==
LOC: EDUNIT# 08:10 → ER 08:14
DX: O99.712 Diseases of the skin and subcutaneous tissue complicating pregnancy, second trimester (principal); L05.01 Pilonidal cyst with abscess; O99.342 Other mental disorders complicating pregnancy, second trimester; F41.9 Anxiety disorder, unspecified; F32.9 Major depressive disorder, single episode, unspecified; O99.352 Diseases of the nervous system complicating pregnancy, second trimester; G43.909 Migraine, unspecified, not intractable, without status migrainosus; O99.282 Endocrine, nutritional and metabolic diseases complicating pregnancy, second trimester; E03.9 Hypothyroidism, unspecified; Z87.891 Personal history of nicotine dependence; Z79.890 Hormone replacement therapy; Z79.52 Long term (current) use of systemic steroids; Z3A.27 27 weeks gestation of pregnancy
CPT/HCPCS: 99283

== ENCOUNTER 2020-10-29 11:25 | Outpatient (CLI) | payer OTHER ==
[~2020-10-29] VITALS: Ht 167.7 cm; Wt 114.2 kg
--- NOTE | 2020-10-29 11:33 | NUR ---
SHAINA PRIDE presented to unit via ambulation from ED, with c/o CRAMPING,BLEEDING. SHAINA PRIDE weighed, gowned, voided, and to bed. EFHM and TOCO applied, VS taken. SHAINA PRIDE oriented to bed controls, call light, TV, heat, and A/C controls.
[2020-10-29 12:03] LABS: BILIRUBIN,URINE NEGATIVE (NEGATIVE); CLARITY,URINE CLEAR; COLOR,URINE YELLOW; GLUCOSE, URINE (UA) NEGATIVE (NEGATIVE); KETONES,URINE NEGATIVE (NEGATIVE); LEUKOCYTE ESTERASE ,URINE NEGATIVE (NEGATIVE); NITRITE,URINE NEGATIVE (NEGATIVE); PH,URINE 6.5 (5-9); PROTEIN,URINE NEGATIVE (NEGATIVE)
[2020-10-29 12:20] LABS: BACTERIA,URINE MODERATE /HPF; WBC,URINE RARE /HPF
--- NOTE | 2020-10-29 13:10 | NUR ---
Dr Barr on unit. Notified of pt arrival. Pt is G1 due / (30.5wks) c/o vaginal bleeding "two tablespoon worth" at 0200 this AM followed by intermittent cramping since and somewhat decreased movement. visualizing entire FHR strip, UA reported along with absence of vaginal bleeding noted upon visualization of perineum. Order for SVE and discharge if pt not dilated.
--- NOTE | 2020-10-29 13:38 | NUR ---
Discharge instructions explained to pt with copy provided to pt. Pt verbalizes understanding of instructions and signs to verify. All questions answered to pt satisfaction. No further needs voiced at this time. Pt ambulates off unit to private vehicle with all personal belongings, no s/s of distress noted.
[2020-10-29 14:32] VITALS: BP 116/57
--- NOTE | 2020-10-30 09:19 | Physician Query-Final Dx ---
MEJIA GALVEZ 10/30/20 0919: Clinic Account Progress/Dx Physician Query: Please give diagnosis Please include # weeks gestation Date of Service Oct 29, 2020 at 11:25 CLYDE CALI DO 10/31/20 0730: Clinic Account Progress/Dx DIAGNOSIS: Diagnosis 35 week iup Vaginal spotting/bleeding MEJIA GALVEZ Oct 30, 2020 09:19 CLYDE CALI DO Oct 31, 2020 07:30
== END 2020-10-29 13:38 | disposition home or self-care (01) ==
LOC: WSo 11:25 → LDRP 11:27 → WSo 13:38 → LDRP 14:42 → WS 14:42
PROVIDERS: ATTEND Obstetrics & Gynecology
DX: O26.853 Spotting complicating pregnancy, third trimester (principal); Z3A.35 35 weeks gestation of pregnancy
CPT/HCPCS: 81000; G0463; 99213

== ENCOUNTER 2021-01-06 19:07 | Inpatient (IN) | payer OTHER ==
[~2021-01-06] VITALS: Ht 165.1 cm; Wt 119.2 kg
[2021-01-06] MEDS ORDERED: D5 LR IV SOLUTION 1,000 ML IV ONE (19:28)
[2021-01-06 19:30] VITALS: BP 115/60
[2021-01-06] MEDS ORDERED: NS (IVPB) 250 ML ONE (20:13)
[2021-01-06] MEDS ORDERED: MINERAL OIL CONCENTRATE 99.9% 15 ML UDC TOP PRN (20:15)
[2021-01-06] MEDS ORDERED: NS (IVPB) 250 ML IV ONE (20:30)
[2021-01-06 20:45] VITALS: BP 131/84
[2021-01-06] MEDS: D5 LR IV SOLUTION 1,000 ML IV SCH (20:48)
[2021-01-06 21:20] VITALS: BP 127/71
[2021-01-06 21:27] LABS: BASOPHILS % (AUTO) 0 % (0-10); EOSINOPHILS % (AUTO) 1 % (0-10); HEMATOCRIT 35 % (35-52); HEMOGLOBIN 11.4 g/dL (11.5-16.0); LYMPHOCYTES # (AUTO) 1.7 10^3/uL (1.0-4.0); LYMPHOCYTES % (AUTO) 20 % (12-44); MEAN CORPUSCULAR HEMOGLOBIN 28 pg (25-34); MEAN CORPUSCULAR HGB CONC 33 g/dL (32-36); MEAN CORPUSCULAR VOLUME 86 fL (80-99); MEAN PLATELET VOLUME 11.5 fL (9.0-12.2); MONOCYTES # (AUTO) 0.5 10^3/uL (0.0-1.0); MONOCYTES % (AUTO) 6 % (0-12); NEUTROPHILS % (AUTO) 72 % (42-75); PLATELET COUNT 247 10^3/uL (130-400); WHITE BLOOD COUNT 8.3 10^3/uL (4.3-11.0)
[2021-01-06] MEDS: CATHETER FLUSH 10 ML SYR IV SCH (22:00)
[2021-01-06] MEDS ORDERED: LEVO175C2 PO (22:08)
[2021-01-06] MEDS ORDERED: FLUO40CA12 PO (22:08)
[2021-01-06] MEDS ORDERED: PROP10TA8 PO (22:09)
[2021-01-06] MEDS ORDERED: PREN1TAB19 PO (22:10)
[2021-01-06] MEDS ORDERED: METO5TAB75 PO (22:10)
[2021-01-06] MEDS ORDERED: FERR-84 PO (22:11)
[2021-01-06 22:40] VITALS: BP 122/81
[2021-01-06 23:40] VITALS: BP 111/59
[2021-01-07] VITALS (75 sets, daily range): BP systolic 59–162; BP diastolic 33–94
[2021-01-07] MEDS ORDERED: ACETAMINOPHEN 500 MG TAB (TYLENOL) ONE (01:06)
[2021-01-07] MEDS ORDERED: diphenhydrAMINE 25 MG TAB (BENADRYL) PO ONE ×2 (01:07→01:15)
[2021-01-07] MEDS ORDERED: ACETAMINOPHEN 500 MG TAB (TYLENOL) PO ONE (01:15)
[2021-01-07] MEDS: D5 LR IV SOLUTION 1,000 ML IV SCH ×3 (03:37→19:57)
[2021-01-07] MEDS: CATHETER FLUSH 10 ML SYR IV SCH (05:52)
[2021-01-07] MEDS ORDERED: HYDROmorphone 2 MG/ML VIAL (DILAUDID) ONE ×2 (06:40→12:58)
[2021-01-07] MEDS ORDERED: HYDROmorphone 2 MG/ML VIAL (DILAUDID) IV ONE ×2 (06:45→23:30)
--- NOTE | 2021-01-07 08:12 | History & Physical-OB ---
OB - Chief Complaint & HPI Date/Time Date of Admission: Date of Admission: Jan 06, 2021 at 19:07 Date seen by a Provider: Jan 07, 2021 Time Seen by a Provider: 08:05 Chief Complaint/History OB-Reason for Admission/Chief: Induction of Labor Hx : 1 Hx Para: 0 Expected Date of Delivery: Jan 02, 2021 Gestational Age in Weeks: 40 Gestational Age in Days: 4 Indication for induction: post dates Admission Nurse Assessment Rev: Yes History of Labs O pos Antibody neg RI RPR NR HBsAg NR HIV NR GC neg GBS neg Allergies and Home Medications Allergies Coded Allergies: tomato (Verified Allergy, Severe, ANAPHYLAXIS, 01/06/21) Home Medications Ferrous Sulfate 325 Mg Tablet, 350 MG PO BID, (Reported) Fluoxetine HCl 40 Mg Capsule, 40 MG PO DAILY, (Reported) Levothyroxine Sodium 175 Mcg Capsule, 175 MCG PO DAILY, (Reported) Metoclopramide HCl 5 Mg Tablet, 5 MG PO PRN, (Reported) Vit/Iron Fumarate/FA 1 Each Tablet, 1 EACH PO DAILY, (Reported) Propranolol HCl 10 Mg Tablet, 10 MG PO BID, (Reported) Patient Home Medication List Home Medication List Reviewed: Yes OB - History Hx of Present Care: Yes Ultrasounds: Normal mid trimester US Obstetrical Complications: None Medical Complications: None Delivery History Hx Blood Disorders: No Adverse Rxn to Tranfusion: No Patient Past Medical History n/a Social History/Family History 2nd Hand Smoke Exposure: No Immunizations Tetanus Booster (TDap): Unknown Date of Influenza Vaccine: Aug 04, 2020 OB - Admission Exam Physical Exam Vitals: Vital Signs 01/06/21 01/07/21 01/07/21 19:30 05:25 06:30 Temp 36.5 Pulse 71 Resp 18 B/P (MAP) 117/66 (83) Pulse Ox 95 O2 Delivery Room Air HEENT: NCAT Heart: Rhythm Normal Lungs: Clear Abdomen: Gravid Extremities: Normal Reflexes: Normal Cervical Dilatation: None Effacement: 50% Station: -2 Membranes: Intact Heart Rate: 130's Accelerations: Accelerations Present Decelerations: Variable Decelerations Short Term Variability: Present Urology Surgeon Variability: Average (6-25) Contractions on Admission: 6-10 Minutes Apart Intensity: Mild Cage Scoring Tool (Modified) Dilation (cm): 0/Closed (0) Effacement (%): 51-79% (2) Descent/Station: -2 (1) Cervix Consistency: Soft (2) Cervix Position: Anterior (2) Subtract 1 point for: Nulliparity (-1) Cage Score: 6 Labs Laboratory Tests Test 01/06/21 19:53 Range/Units White Blood Count 8.3 4.3-11.0 10^3/uL Red Blood Count 4.06 3.80-5.11 10^6/uL Hemoglobin 11.4 L 11.5-16.0 g/dL Hematocrit 35 35-52 % Mean Corpuscular Volume 86 80-99 fL Mean Corpuscular Hemoglobin 28 25-34 pg Mean Corpuscular Hemoglobin Concent 33 32-36 g/dL Red Cell Distribution Width 14.6 H 10.0-14.5 % Platelet Count 247 130-400 10^3/uL Mean Platelet Volume 11.5 9.0-12.2 fL Immature Granulocyte % (Auto) 1 % Neutrophils (%) (Auto) 72 42-75 % Lymphocytes (%) (Auto) 20 12-44 % Monocytes (%) (Auto) 6 0-12 % Eosinophils (%) (Auto) 1 0-10 % Basophils (%) (Auto) 0 0-10 % Neutrophils # (Auto) 6.0 1.8-7.8 10^3/uL Lymphocytes # (Auto) 1.7 1.0-4.0 10^3/uL Monocytes # (Auto) 0.5 0.0-1.0 10^3/uL Eosinophils # (Auto) 0.0 0.0-0.3 10^3/uL Basophils # (Auto) 0.0 0.0-0.1 10^3/uL Immature Granulocyte # (Auto) 0.1 0.0-0.1 10^3/uL OB - Assessment/Plan/Diagnosis Assessment Assessment: induction of labor Admission Dx 25 yo @ 40.5 Post dates IOL GBS neg Admission Status: Inpatient Order (span 2 midnights) Reason for Inpatient Admission: IOL at term Plan Plan: Induction Induction Method: per Misoprostol Protocol CLYDE CALI DO Jan 07, 2021 08:12
[2021-01-07] MEDS ORDERED: OXYTOCIN PRE-MIX DRIP 500 ML IV SCH (09:00)
[2021-01-07] MEDS ORDERED: HYDROmorphone 2 MG/ML VIAL (DILAUDID) IVP ONE (13:00)
[2021-01-07] MEDS: HYDROmorphone 2 MG/ML VIAL (DILAUDID) IVP PRN (16:28)
[2021-01-07] MEDS ORDERED: fentaNYL 2 mcg/ml BUPIVA 0.125 100 ML ONE (16:47)
[2021-01-07] MEDS ORDERED: fentaNYL INJ 100 MCG/2 ML AMP ONE ×2 (17:12→21:39)
[2021-01-07] MEDS ORDERED: NALOXONE 0.4 MG/ML 1 ML (NARCAN) VIAL IV PRN (18:15)
[2021-01-07] MEDS ORDERED: LACTATED RINGERS 1,000 ML IV SCH (18:15)
[2021-01-07] MEDS ORDERED: ONDANSETRON 4 MG/2 ML (SDV) Z0FRAN IV PRN (18:15)
[2021-01-07] MEDS ORDERED: diphenhydrAMINE 50 MG/ML INJ (BENADRYL) IV PRN (18:15)
[2021-01-07] MEDS ORDERED: EPIDURAL (fentaNYL 2 MCG/ML BUPIVA 0.125%)100 ML BAG EPI PRN (18:15)
[2021-01-07] MEDS ORDERED: LIDOCAINE PF 2% 5 ML (XYLOCAINE) VIAL ONE ×2 (18:25→22:54)
[2021-01-07] MEDS ORDERED: BUPIVACAINE 0.25% 30 ML (SENSORCAINE) VIAL ONE (18:25)
[2021-01-07] MEDS ORDERED: METOCLOPRAMIDE INJ 10 MG/2 ML (REGLAN) IV ONE (21:30)
[2021-01-07] MEDS ORDERED: FAMOTIDINE 20MG/2ML IV (PEPCID) IV ONE (21:30)
[2021-01-07] MEDS ORDERED: CITRIC ACID/SOB CIT (BICITRA) 30 ML UDC PO ONE (21:30)
[2021-01-07] MEDS ORDERED: LACTATED RINGERS 1,000 ML IV PRN ×2 (21:30)
[2021-01-07] MEDS ORDERED: ceFAZolin 2 GM IV Premixed 50 ML IV ONE (21:30)
[2021-01-07] MEDS ORDERED: METOCLOPRAMIDE INJ 10 MG/2 ML (REGLAN) ONE (21:38)
[2021-01-07] MEDS ORDERED: FAMOTIDINE 20MG/2ML IV (PEPCID) ONE (21:38)
[2021-01-07] MEDS ORDERED: CITRIC ACID/SOB CIT (BICITRA) 30 ML UDC ONE (21:38)
[2021-01-07] MEDS ORDERED: ceFAZolin 2 GM IV Premixed 50 ML ONE (21:39)
[2021-01-07] MEDS ORDERED: OXYTOCIN PRE-MIX DRIP 1,000 ML IV ONE (21:40)
--- NOTE | 2021-01-07 22:04 | Progress Note ---
Standard Progress Note Progress Notes/Assess & Plan Date Seen by a Provider: Jan 07, 2021 Time Seen by a Provider: 21:55 Progress/Assessment & Plan Patient admitted for IOL for postdates last night. Unfavorable cervix noted and cervical ripening was started, she received 5 doses overnight PO, this AM Pitocin was started the patient was a fingertip dilated. She progressed to a 1 cm dilatation when AROM was performed and internal monitor was placed due to a few variable decelerations. Meconium stained fluid was noted at time of rupture, she received an epidural and continued to contract in a active regular contraction pattern for 9 hours with little to no change in the cervix. Due to failure to progress, discussion of was had. The patient was agreeable to proceed at this point. CLYDE CALI DO Jan 07, 2021 22:04
--- NOTE | 2021-01-07 22:08 | Discharge Inst-Women's Service ---
Discharge Inst-Women's Serv Depart Medication/Instructions New, Converted or Re-Newed RX: RX on Chart Final Diagnosis POD 2 PLTCS Problems Reviewed?: Yes Consults/Follow Up Additional Follow Up: Yes Orders/Referrals Dr. Barr in 7-10 days and in 6 weeks Activity Activity: Activity as Tolerated Driving Instructions: No Driving for 1 Week NO SMOKING: NO SMOKING Nothing Inside Vagina: No Douching, No Welda, No Tampons Diet Discharge Diet: No Restrictions Symptoms to Report to : Bleeding Excessive, Pain Increased, Fever Over 101 Degrees F, Vaginal Bleeding Increase, Questions/Concerns For Any Problems or Questions: Contact Your Physician Skin/Wound Care Infection Signs and Symptoms: Increased Redness, Foul Odor of Wound, Increased Drainage, Skin Itchy or Has a Rash, Increased Swelling, Temperature Above 101 F Operative Area Clean and Dry: Keep Incision Clean/Dry Stitches/[place]/Dermabond: Dermabond, Care of Stitches Bathing Instructions: CLYDE Jaeger DO Jan 07, 2021 22:08
[2021-01-07] MEDS ORDERED: DCS100C PO (22:10)
[2021-01-07] MEDS ORDERED: IBUP-844 PO (22:10)
[2021-01-07] MEDS ORDERED: ACHD5005 PO (22:10)
[2021-01-07] MEDS ORDERED: TETANUS,DIPTH,PERTUSS P/F (BOOSTRIX) 0.5 ML VIAL IM SCH (22:15)
[2021-01-07] MEDS ORDERED: ONDANSETRON 4 MG/2 ML (SDV) Z0FRAN IVP PRN ×2 (22:15→23:30)
[2021-01-07] MEDS ORDERED: MEASLES,MUMPS,RUBELLA 1 EA INJ SC SCH (22:15)
[2021-01-07] MEDS: KETOROLAC 30 MG/ML VIAL IV SCH (22:15)
[2021-01-07] MEDS ORDERED: KETAMINE/NaCl 50 MG/5 ML SYRINGE (ED ONLY) ONE (22:30)
[2021-01-07] MEDS ORDERED: METHYLERGONOVINE 0.2 MG/ML (METHERGINE) AMP ONE (22:34)
[2021-01-07] MEDS ORDERED: MIDAZOLAM 2 MG/2 ML (VERSED) VIAL ONE (22:42)
[2021-01-07] MEDS ORDERED: proPOfol 200 MG/20 ML (DIPRIVAN) VIAL IV ONE (22:53)
[2021-01-07] MEDS ORDERED: ONDANSETRON 4 MG/2 ML (SDV) Z0FRAN ONE (22:53)
[2021-01-07] MEDS ORDERED: BUPIVACAINE 0.5% 30 ML (SENSORCAINE) VIAL ONE ×2 (22:54)
[2021-01-07] MEDS ORDERED: KETOROLAC 30 MG/ML VIAL ONE (23:13)
[2021-01-07] MEDS ORDERED: morphine INJ 10 MG/ML 1ML (SYR OR VIAL) ONE (23:21)
[2021-01-07] MEDS ORDERED: MEPERIDINE (DEMEROL) INJ 50 MG/ML IVP ONE (23:30)
[2021-01-07] MEDS ORDERED: morphine INJ 10 MG/ML 1ML (SYR OR VIAL) IVP ONE (23:30)
[2021-01-08] VITALS (8 sets, daily range): BP systolic 110–135; BP diastolic 67–94
[2021-01-08] MEDS: CATHETER FLUSH 10 ML SYR IV SCH ×2 (00:29→01:30)
[2021-01-08] MEDS: OXYTOCIN PRE-MIX DRIP 500 ML IV SCH ×2 (00:38→04:46)
[2021-01-08] MEDS: HYDROcodone/APAP 5 MG/325 MG (LORTAB) TAB PO PRN ×6 (00:38→21:07)
[2021-01-08] MEDS: HYDROmorphone 2 MG/ML VIAL (DILAUDID) IVP PRN (03:43)
--- NOTE | 2021-01-08 04:19 | OPERATIVE REPORT ---
DATE OF SERVICE: PREOPERATIVE DIAGNOSES: 1. A 25-year-old G1, P0 at 40 weeks and 5 days gestation. 2. Meconium-stained fluid. 3. Failure to progress. POSTOPERATIVE DIAGNOSES: 1. A 25-year-old G1, P0 at 40 weeks and 5 days gestation. 2. Meconium-stained fluid. 3. Failure to progress. 4. Nuchal cord x2. PROCEDURE: Primary low transverse section. SURGEON: Miguel Angel Cali DO ANESTHESIA: Epidural, which was bolused. ESTIMATED BLOOD LOSS: 1000 mL. URINE OUTPUT: 700 mL clear at the end of the procedure. FLUIDS: 1500 mL lactated Ringer's solution. FINDINGS: A live female infant weighing 8 pounds 2 ounces, Apgars of 8 and 9. Grossly normal appearing uterus, bilateral fallopian tubes and ovaries. SPECIMEN SENT: Placenta. INDICATIONS FOR PROCEDURE: This 25-year-old female patient was brought in for induction of labor. Please see my preoperative note for complete details pertaining to indications for procedure. Risks of procedure were discussed with the patient in detail including risk of bleeding, infection, damaging structures including, but not limited to bowel, bladder, ureter, kidneys, possible need for reoperation, postoperative complications that may occur, recovery timeframe, risk from anesthesia and even . After everything was discussed with the patient in detail, consent was obtained in the preoperative area and the patient was taken to the operating room. OPERATIVE REPORT IN DETAIL: Once in the operating room, epidural analgesia was bolused and found to be adequate, placed in the supine position with leftward tilt, prepped and draped in normal sterile fashion. A timeout was performed, and anesthesia was tested. I then make a Pfannenstiel skin incision with a knife and carried down to underlying fascia using Bovie cautery. Fascial incision extended laterally using Bovie cautery. The superior aspect of fascial incision was then grasped with Petey clamps, tented up and dissected off the underlying rectus muscles. The inferior aspect of fascial incision was then grasped with Petey clamps, tented up and dissected off the underlying rectus muscles. Rectus muscles were then dissected down the midline using Torres scissors, which exposed the peritoneum, which I entered bluntly and extended using blunt traction. An Tre ring retractor was placed in the peritoneal incision, which offers excellent lateral sidewall retraction. I identified the lower uterine segment, which was found to be thinned out. I made a low transverse incision to the vesicouterine peritoneum and bluntly dissected off of the lower uterine segment, creating a bladder flap. I then proceeded with my myotomy until membranes were visualized, at which point I extended the uterine incision laterally and superiorly using bandage scissors. The was found in vertex presentation. Amniotomy was performed through the myotomy incision. With gentle fundal pressure, the infant's head was elevated up the incision where the nares and oropharynx are delivered, and bulb suctioned. A nuchal cord was reduced x2. Anterior and posterior shoulders were delivered. The was then brought to the operative field where cord doubly clamped and cut and was handed off to waiting nurses in attendance. Cord blood was collected. Three-vessel cord with intact placenta was delivered spontaneously thereafter. IV Pitocin was initiated to facilitate uterine contraction. Uterine fundus confirmed by manual massage. The uterus was exteriorized and cleared of all endometrial clots and debris. I then closed the uterine incision using 0 Vicryl suture in running locked fashion. Second layer of imbricating 0 Monocryl was placed. Excellent hemostasis was noted after doing this. I then placed the uterus back in the pelvis, copiously irrigated the pelvis using normal saline. There was some oozing from the incision plane and some bogginess of the uterus, 0.2 mg of Methergine was ordered for anesthesia to administer IM. I also placed several [id number] sutures along the suture line to ensure hemostasis and cover the suture line with Surgicel hemostatic agent. I then covered this area as well with Interceed. After the Tre ring retractor was removed, I then closed the peritoneum using 3-0 Vicryl suture in a running fashion. The rectus muscles were reapproximated using 3-0 Vicryl suture in interrupted fashion. The fascia was reapproximated using 0 Vicryl suture in running fashion. The subcutaneous tissue was reapproximated using 3-0 plain interrupted subcutaneous stitch and skin reapproximated using 4-0 Monocryl running subcuticular. Dermabond was applied to incision and sterile dressing with adhesive white tape. The patient tolerated the procedure well and was taken to recovery area in stable condition. Lap and sponge count was correct at the end of the procedure. Instrument counts correct as well. Two grams of Ancef given preoperatively for infection prophylaxis. Job ID: [id number] DocumentID: [id number] Dictated Date: 01/07/2021 23:12:33 Motor Tune Up Specialist Date: 01/08/2021 04:18:19 Dictated By: MIGUEL ANGEL CALI DO
[2021-01-08] MEDS: KETOROLAC 30 MG/ML VIAL IV SCH ×3 (05:59→18:44)
[2021-01-08] MEDS ORDERED: CATHETER FLUSH 10 ML SYR IV SCH (06:00)
[2021-01-08 06:42] LABS: BASOPHILS % (AUTO) 0 % (0-10); EOSINOPHILS % (AUTO) 0 % (0-10); HEMATOCRIT 30 % (35-52); HEMOGLOBIN 9.6 g/dL (11.5-16.0); LYMPHOCYTES # (AUTO) 1.9 10^3/uL (1.0-4.0); LYMPHOCYTES % (AUTO) 14 % (12-44); MEAN CORPUSCULAR HEMOGLOBIN 28 pg (25-34); MEAN CORPUSCULAR HGB CONC 32 g/dL (32-36); MEAN CORPUSCULAR VOLUME 88 fL (80-99); MEAN PLATELET VOLUME 10.9 fL (9.0-12.2); MONOCYTES # (AUTO) 0.7 10^3/uL (0.0-1.0); MONOCYTES % (AUTO) 6 % (0-12); NEUTROPHILS # (AUTO) 10.4 10^3/uL (1.8-7.8); NEUTROPHILS % (AUTO) 79 % (42-75); PLATELET COUNT 164 10^3/uL (130-400); WHITE BLOOD COUNT 13.1 10^3/uL (4.3-11.0)
[2021-01-08] MEDS: DOCUSATE SODIUM 100 MG (COLACE) CAP PO SCH ×2 (07:37→21:07)
--- NOTE | 2021-01-08 08:28 | Postpartum Progress Note ---
Note Note Day # 1 Subjective: Patient is without complaints. Ambulating, voiding. Tolerating a regular diet without nausea or vomiting. Normal lochia. Pain is well controlled with oral pain medications. Objective: Physical Exam: General - Alert and oriented, no apparent distress Abdomen - Soft, appropriately tender to palpation, non-distended, fundus firm at umbilicus Extremities - no edema, negative Blanche's bilaterally Incision- c/d/i Assessment: POD 1 PLTCS Acute blood loss anemia Plan: Routine care. Encourage breast feeding. Encourage ambulation. Ferrous sulfate supplementation. Plan for discharge tomorrow Vitals - Labs Vital Signs - I&O Vital Signs Date Time Temp Pulse Resp B/P (MAP) Pulse Ox O2 Delivery O2 Flow Rate FiO2 01/08/21 07:40 36.3 78 16 120/69 (86) 96 Room Air 01/08/21 03:45 36.0 80 16 126/75 (92) 95 Room Air 01/08/21 00:45 36.0 90 16 132/81 (98) 96 Room Air 01/08/21 00:15 35.6 16 135/94 (108) 97 Room Air 01/08/21 00:15 Room Air 01/08/21 00:00 36.1 16 110/87 (95) 97 Room Air 01/08/21 00:00 Room Air 01/07/21 23:45 Room Air 01/07/21 23:45 36.2 16 130/88 (102) 98 Room Air 01/07/21 23:30 36.3 16 133/79 (97) 98 Room Air 01/07/21 23:30 Room Air 01/07/21 23:15 Room Air 01/07/21 23:15 36.1 18 139/82 (101) 98 Room Air 01/07/21 22:05 93 16 137/81 (99) Room Air 01/07/21 21:50 108 16 137/90 (106) Room Air 01/07/21 21:35 103 16 102/63 (76) Room Air 01/07/21 21:20 35.4 101 16 135/82 (99) Room Air 01/07/21 21:05 91 16 130/82 (98) Room Air 01/07/21 20:50 107 16 117/79 (92) Room Air 01/07/21 20:35 100 16 128/83 (98) Room Air 01/07/21 20:20 36.0 100 16 132/87 (102) 96 Room Air 01/07/21 20:05 96 16 130/83 (99) 96 Room Air 01/07/21 19:50 104 16 110/68 (82) 96 Room Air 01/07/21 19:35 106 16 111/78 (89) 95 Room Air 01/07/21 19:20 36.1 112 16 121/75 (90) 95 Room Air 01/07/21 19:05 111 18 117/66 (83) 99 Room Air 01/07/21 19:00 87 18 134/74 (94) 97 Room Air 01/07/21 18:55 86 18 127/71 (89) 98 Room Air 01/07/21 18:48 108 18 121/77 (92) 98 Room Air 01/07/21 18:45 117 18 118/74 (89) 95 Room Air 01/07/21 18:38 108 18 115/82 (93) Room Air 01/07/21 18:35 110 18 124/64 (84) 97 Room Air 01/07/21 18:32 99 18 134/66 (88) 97 Room Air 01/07/21 18:28 83 110/70 (83) Room Air 01/07/21 18:25 93 18 61/37 (45) Room Air 01/07/21 18:24 115 18 59/38 (45) Room Air 01/07/21 18:22 90 18 98/57 (71) 94 Room Air 01/07/21 18:19 101 18 98/53 (68) Room Air 01/07/21 18:18 102 18 93/54 (67) 94 Room Air 01/07/21 18:15 101 18 94 Room Air 01/07/21 18:13 108 18 111/59 (76) Room Air 01/07/21 18:10 107 18 125/63 (83) 94 Room Air 01/07/21 18:07 116 18 126/61 (82) Room Air 01/07/21 18:04 103 18 139/60 (86) 94 Room Air 01/07/21 18:01 121 18 148/74 (98) Room Air 01/07/21 17:58 115 18 162/74 (103) Room Air 01/07/21 17:55 106 18 135/90 (105) 93 Room Air 01/07/21 17:52 92 18 136/86 (103) 95 Room Air 01/07/21 17:49 96 18 140/88 (105) 92 Room Air 01/07/21 17:46 96 18 137/85 (102) 96 Room Air 01/07/21 17:43 96 18 133/86 (102) 93 Room Air 01/07/21 17:40 101 18 148/88 (108) 96 Room Air 01/07/21 17:36 83 18 146/88 (107) 96 Room Air 01/07/21 17:33 97 18 142/85 (104) Room Air 01/07/21 17:30 107 18 137/92 (107) 98 Room Air 01/07/21 17:11 77 18 138/82 (100) Room Air 01/07/21 16:57 86 18 133/80 (97) Room Air 01/07/21 16:42 90 18 124/64 (84) Room Air 01/07/21 16:28 36.8 77 18 126/64 (84) Room Air 01/07/21 15:42 71 18 114/69 (84) Room Air 01/07/21 15:28 73 18 127/78 (94) Room Air 01/07/21 15:12 65 18 119/67 (84) Room Air 01/07/21 15:02 64 18 138/92 (107) Room Air 01/07/21 14:53 35.9 01/07/21 14:41 65 18 120/73 (89) Room Air 01/07/21 14:27 65 18 127/81 (96) Room Air 01/07/21 14:12 88 18 115/83 (94) Room Air 01/07/21 13:57 36.5 91 18 118/84 (95) Room Air 01/07/21 13:42 67 18 115/73 (87) Room Air 01/07/21 13:26 81 18 129/82 (98) Room Air 01/07/21 13:12 75 18 126/83 (97) Room Air 01/07/21 13:08 36.1 01/07/21 12:57 76 18 116/64 (81) Room Air 01/07/21 12:42 77 18 115/64 (81) Room Air 01/07/21 12:29 77 18 115/63 (80) Room Air 01/07/21 12:11 100 18 141/75 (97) Room Air 01/07/21 11:57 83 18 141/89 (106) Room Air 01/07/21 11:49 108 18 135/94 (108) Room Air 01/07/21 11:27 81 18 123/76 (92) Room Air 01/07/21 11:11 71 18 116/67 (83) Room Air 01/07/21 10:56 36.2 71 18 115/62 (79) Room Air 01/07/21 10:30 78 18 104/57 (73) Room Air 01/07/21 09:41 36.1 01/07/21 09:30 77 18 119/62 (81) Room Air 01/07/21 08:30 75 18 123/62 (82) Room Air I & O 01/08/21 07:00 Intake Total 4700 ml Output Total 900 ml Balance 3800 ml Labs Laboratory Tests 01/08/21 06:18: White Blood Count 13.1H, Red Blood Count 3.42L, Hemoglobin 9.6L, Hematocrit 30L, Mean Corpuscular Volume 88, Mean Corpuscular Hemoglobin 28, Mean Corpuscular Hemoglobin Concent 32, Red Cell Distribution Width 14.6H, Platelet Count 164, Mean Platelet Volume 10.9, Immature Granulocyte % (Auto) 1, Neutrophils (%) (Auto) 79H, Lymphocytes (%) (Auto) 14, Monocytes (%) (Auto) 6, Eosinophils (%) (Auto) 0, Basophils (%) (Auto) 0, Neutrophils # (Auto) 10.4H, Lymphocytes # (Auto) 1.9, Monocytes # (Auto) 0.7, Eosinophils # (Auto) 0.0, Basophils # (Auto) 0.0, Immature Granulocyte # (Auto) 0.1 CLYDE CALI DO Jan 08, 2021 08:28
--- NOTE | 2021-01-08 08:41 | Anesthesia-Regional Post-Op ---
Regional Patient Condition Mental Status: Alert, Oriented x3 Circulation: Same as Pre-Op Headache: Absent Sensation: Full Recovery Motor Block: Absent Post Op Complications Complications None Follow Up Care/Instructions Patient Instructions None needed. Anesthesia/Patient Condition Patient is doing well, no complaints, stable vital signs, no apparent adverse anesthesia problems. No complications reported per nursing. ANNE OCAMPO CRNA Jan 08, 2021 08:40
[2021-01-08] MEDS ORDERED: FLUoxetine HCL 20 MG (PROzac) CAP PO SCH (21:00)
[2021-01-09] MEDS: IBUPROFEN 600 MG (MOTRIN) TAB PO SCH ×2 (00:04→06:09)
[2021-01-09 03:30] VITALS: BP 124/77
[2021-01-09] MEDS: HYDROcodone/APAP 5 MG/325 MG (LORTAB) TAB PO PRN ×2 (03:36→09:36)
[2021-01-09 07:55] VITALS: BP 131/74
--- NOTE | 2021-01-09 09:28 | Postpartum Progress Note ---
Note Note Day # 2 Subjective: Patient is without complaints. Ambulating, voiding. Tolerating a regular diet without nausea or vomiting. Normal lochia. Pain is well controlled with oral pain medications. Objective: Physical Exam: General - Alert and oriented, no apparent distress Abdomen - Soft, appropriately tender to palpation, non-distended, fundus firm at umbilicus Extremities - no edema, negative Blanche's bilaterally Incision- c/d/i Assessment: POD 2 RLTCS Acute blood loss anemia Plan: Routine care. Encourage breast feeding. Encourage ambulation. Ferrous sulfate supplementation. Plan for discharge today Vitals - Labs Vital Signs - I&O Vital Signs Date Time Temp Pulse Resp B/P (MAP) Pulse Ox O2 Delivery O2 Flow Rate FiO2 01/09/21 03:30 36.5 88 18 124/77 (93) Room Air 01/08/21 21:47 36.3 82 18 121/67 (85) 95 Room Air 01/08/21 16:55 36.2 92 18 129/74 (92) 95 Room Air 01/08/21 12:42 35.7 82 16 116/73 (87) 96 Room Air I & O 01/09/21 07:00 Output Total 1350 ml Balance -1350 ml CLYDE CALI DO Jan 09, 2021 09:28
== END 2021-01-09 13:45 | disposition home or self-care (01) | DRG 787 ==
LOC: LDRP 19:07 → EEVIPCON 19:07 → LDRP 01-08 00:30
PROVIDERS: ADMIT Obstetrics & Gynecology; ATTEND Obstetrics & Gynecology
PROC: 10D00Z1 Extraction of Products of Conception, Low, Open Approach (ICD-10-PCS; principal; 2021-01-08)
DX: O48.0 Post-term pregnancy (principal); D62 Acute posthemorrhagic anemia; O77.0 Labor and delivery complicated by meconium in amniotic fluid; Z3A.40 40 weeks gestation of pregnancy; Z37.0 Single live birth; O62.0 Primary inadequate contractions; O69.81X0 Labor and delivery complicated by cord around neck, without compression, not applicable or unspecified; O90.81 Anemia of the puerperium
CPT/HCPCS: 36415; 85025; 86850; 86900; 86901

== ENCOUNTER 2022-12-01 00:40 | Emergency (ER) | payer OTHER ==
[~2022-12-01] VITALS: Ht 167.7 cm; Wt 88.0 kg
[~2022-12-01 00:40] MED LIST changes: +DOCU-239 PO; +FERR-84 PO; +FLUO40CA12 PO; +IBUP-844 PO; +LEVO175C2 PO; +METO5TAB75 PO; +PREN1TAB19 PO; +PROP10TA8 PO; -SULF1TAB35 PO; +SULF1TAB38 PO
[2022-12-01 01:00] VITALS: BP 141/86
[2022-12-01 01:12] LABS: BASOPHILS % (AUTO) 0 % (0-10); EOSINOPHILS # (AUTO) 0.1 10^3/uL (0.0-0.3); EOSINOPHILS % (AUTO) 1 % (0-10); HEMATOCRIT 38 % (35-52); LYMPHOCYTES # (AUTO) 2.2 10^3/uL (1.0-4.0); LYMPHOCYTES % (AUTO) 31 % (12-44); MEAN CORPUSCULAR HEMOGLOBIN 29 pg (25-34); MEAN CORPUSCULAR HGB CONC 34 g/dL (32-36); MEAN CORPUSCULAR VOLUME 86 fL (80-99); MEAN PLATELET VOLUME 10.7 fL (9.0-12.2); MONOCYTES # (AUTO) 0.4 10^3/uL (0.0-1.0); MONOCYTES % (AUTO) 6 % (0-12); NEUTROPHILS # (AUTO) 4.3 10^3/uL (1.8-7.8); NEUTROPHILS % (AUTO) 61 % (42-75); PLATELET COUNT 218 10^3/uL (130-400)
--- NOTE | 2022-12-01 01:17 | ED Chest Pain ---
General Chief Complaint: Chest Pain Stated Complaint: CP Nursing Triage Note: Pt presents with c/o chest pain radiating into L arm and neck that started at approx 2200 tonight. Pt reports nausea earlier in the day and slight shortness of breath. Denies cardiac hx. Pt took tylenol, and migraine medications at 2100 Source: patient Exam Limitations: no limitations History of Present Illness Date Seen by Provider: Dec 01, 2022 Time Seen by Provider: 01:00 Initial Comments 27-year-old female presents to the emergency department today for chest pressure. Symptoms started about 10 PM and been constant since that time. She was laying in bed at onset. It did not wake her from sleep. No history of high blood pressure high cholesterol or diabetes. She is a non-smoker. He is currently on her menstrual cycle, recently removed her IUD and this is the first menstrual cycle since that time. She denies fevers chills cough abdominal pain or changes in bowel or bladder habits. She has a daughter who recently got over a viral type URI. She states she is "felt off" all day today. She is to have a migraine and so took her Nurtec earlier in the day. She did not have a migraine but began having chest pressure this evening. Pressure does radiate to her left arm. No other associated symptoms. She has never had similar symptoms in the past. No cardiac history. All other systems reviewed and negative except documented per HPI. Voice recognition software was used to help create this chart Allergies and Home Medications Allergies Coded Allergies: tomato (Verified Allergy, Severe, ANAPHYLAXIS, 01/06/21) Patient Home Medication List Home Medication List Reviewed: Yes Docusate Sodium (Dok) 100 Mg Capsule, 100 MG PO BID PRN for CONSTIPATION-1ST LINE Prescribed by: CLYDE CALI on 01/07/212209 Fluoxetine HCl (Prozac) 40 Mg Capsule, 40 MG PO DAILY, (Reported) Entered as Reported by: NOMAN ALDRIDGE on 01/06/212207 Hydrocodone Bit/Acetaminophen (HYDROcodone/APAP 5 MG/325 MG TAB) 1 Tab Tab, 1-2 EA PO Q6HR PRN for PAIN-MODERATE (5-7) Prescribed by: CLYDE CALI on 01/07/212209 Ibuprofen (Ibu) 600 Mg Tablet, 600 MG PO Q6HR Prescribed by: CLYDE CALI on 01/07/212209 Levothyroxine Sodium (Levothyroxine) 175 Mcg Capsule, 175 MCG PO DAILY, (Reported) Entered as Reported by: NOMAN ALDRIDGE on 01/06/212207 Metoclopramide HCl (Reglan) 5 Mg Tablet, 5 MG PO PRN, (Reported) Entered as Reported by: NOMAN ALDRIDGE on 01/06/212209 Vit/Iron Fumarate/FA ( Vitamins Tablet) 1 Each Tablet, 1 EACH PO DAILY, (Reported) Entered as Reported by: NOMAN ALDRIDGE on 01/06/212209 Review of Systems Review of Systems Constitutional: no symptoms reported Past Pzlcvvd-Somqgm-Zkcnch Hx Patient Social History Tobacco Use?: No Use of E-Cig and/or Vaping dev: No Substance use?: No Alcohol Use?: No Immunizations Up To Date Tetanus Booster (TDap): Unknown PED Vaccines UTD: Yes Influenza Vaccine Up-to-Date: Yes; Up-to-Date First/Initial COVID19 Vaccinat: unknown Second COVID19 Vaccination Fernando: unknown Seasonal Allergies Seasonal Allergies: Yes Past Medical History Surgeries: Yes (NOSE/EAR, SINUS) Respiratory: No Cardiac: No Neurological: Yes Headaches /Migraines Last Menstrual Period: Nov 24, 2022 Reproductive Disorders: No HIV/AIDS: No Gastrointestinal: No Musculoskeletal: No Fibromyalgia Endocrine: Yes Hypothyroidsim Cancer: No Psychosocial: Yes Anxiety, Depression Integumentary: No Blood Disorders: No Adverse Reaction/Blood Tranf: No Family Medical History Reviewed Nursing Family Hx Heart Disease, Migraines, Other Conditions/Hx Physical Exam Vital Signs Vital Signs - First Documented 12/01/22 01:00 Temp 36.6 Pulse 72 Resp 16 B/P (MAP) 141/86 (104) Capillary Refill : Less Than 3 Seconds Height, Weight, BMI Height: 5'6.00" Weight: 170lbs. oz. 77.473439ru; 31.00 BMI Method:Stated General Appearance: No Apparent Distress, WD/WN HEENT: Normal ENT Inspection, Pharynx Normal Neck: Full Range of Motion, Non Tender, Supple Respiratory: Chest Non Tender, Lungs Clear, Normal Breath Sounds, No Accessory Muscle Use, No Respiratory Distress Cardiovascular: Regular Rate, Rhythm, No Edema, No Murmur, Normal Peripheral Pulses Gastrointestinal: Normal Bowel Sounds, No Organomegaly, Non Tender, Soft Extremity: Normal Capillary Refill, Normal Inspection, Normal Range of Motion, Non Tender, No Calf Tenderness, No Pedal Edema Neurologic/Psychiatric: Alert, Oriented x3, No Motor/Sensory Deficits Skin: Normal Color, Warm/Dry Progress/Results/Core Measures Results/Orders Lab Results Laboratory Tests Test 12/01/22 01:04 Range/Units White Blood Count 7.0 4.3-11.0 10^3/uL Red Blood Count 4.47 3.80-5.11 10^6/uL Hemoglobin 13.0 11.5-16.0 g/dL Hematocrit 38 35-52 % Mean Corpuscular Volume 86 80-99 fL Mean Corpuscular Hemoglobin 29 25-34 pg Mean Corpuscular Hemoglobin Concent 34 32-36 g/dL Red Cell Distribution Width 12.6 10.0-14.5 % Platelet Count 218 130-400 10^3/uL Mean Platelet Volume 10.7 9.0-12.2 fL Immature Granulocyte % (Auto) 0 % Neutrophils (%) (Auto) 61 42-75 % Lymphocytes (%) (Auto) 31 12-44 % Monocytes (%) (Auto) 6 0-12 % Eosinophils (%) (Auto) 1 0-10 % Basophils (%) (Auto) 0 0-10 % Neutrophils # (Auto) 4.3 1.8-7.8 10^3/uL Lymphocytes # (Auto) 2.2 1.0-4.0 10^3/uL Monocytes # (Auto) 0.4 0.0-1.0 10^3/uL Eosinophils # (Auto) 0.1 0.0-0.3 10^3/uL Basophils # (Auto) 0.0 0.0-0.1 10^3/uL Immature Granulocyte # (Auto) 0.0 0.0-0.1 10^3/uL Sodium Level 141 135-145 MMOL/L Potassium Level 3.6 3.6-5.0 MMOL/L Chloride Level 105 98-107 MMOL/L Carbon Dioxide Level 24 21-32 MMOL/L Anion Gap 12 5-14 MMOL/L Blood Urea Nitrogen 12 7-18 MG/DL Creatinine 0.93 0.60-1.30 MG/DL Estimat Glomerular Filtration Rate 85 BUN/Creatinine Ratio 13 Glucose Level 108 H 70-105 MG/DL Calcium Level 9.4 8.5-10.1 MG/DL Corrected Calcium 9.0 8.5-10.1 MG/DL Magnesium Level 2.0 1.6-2.4 MG/DL Total Bilirubin 0.5 0.1-1.0 MG/DL Aspartate Amino Transf (AST/SGOT) 15 5-34 U/L Alanine Aminotransferase (ALT/SGPT) 12 0-55 U/L Alkaline Phosphatase 64 40-136 U/L Troponin I < 0.028 <0.028 NG/ML Total Protein 7.0 6.4-8.2 GM/DL Albumin 4.5 3.2-4.5 GM/DL Serum Test, Qualitative NEGATIVE NEGATIVE My Orders Orders - WILLIAMWILL Bernarda DO Cbc With Automated Diff (12/01/22 01:08) Magnesium (12/01/22 01:08) Chest 1 View, Ap/Pa Only (12/01/22 01:08) Comprehensive Metabolic Panel (12/01/22 01:08) Troponin I Jacob (12/01/22 01:08) Hcg,Qualitative Serum (12/01/22 01:13) Vital Signs/I&O 12/01/22 01:00 Temp 36.6 Pulse 72 Resp 16 B/P (MAP) 141/86 (104) Blood Pressure Mean: 104 Departure Communication (Admissions) Initial differential diagnosis includes cardiac type chest pain, PE, pneumonia, pneumothorax, musculoskeletal pain. PE is unlikely, no risk factors, unilateral lower extremity pain, swelling recent surgeries or long distance travel. No periods of immobility. She has minimal risk factors for ACS, heart score is 1. Her EKG is nonischemic. Pending lab work-up for further delineation. Chest x- ray is negative, no evidence for pneumonia, pneumothorax. No pulmonary edema. I have independently reviewed EKG, chest x-ray Impression Primary Impression: Chest pain with low risk of acute coronary syndrome Disposition: HOME, SELF-CARE Condition: Stable Departure-Patient Inst. Referrals: NO,LOCAL PHYSICIAN (PCP/Family) Primary Care Physician Patient Instructions: Chest Pain That Is Not Caused by the Heart (DC) Add. Discharge Instructions: You were seen in the emergency department today for chest pain. No emergent medical condition is identified for your symptoms. I do not believe at this time that this is coming from your heart or your lungs. Should your symptoms persist please follow-up with your primary doctor for further evaluation and treatment recommendations. Return to the emergency department should your symptoms change in any way concerning to you. Follow-up with primary doctor for any nonemergent needs. All discharge instructions reviewed with patient and/or family. Voiced understanding. WILL THOMAS DO Dec 01, 2022 01:17
[2022-12-01 01:23] LABS: ALBUMIN 4.5 GM/DL (3.2-4.5); POTASSIUM 3.6 MMOL/L (3.6-5.0)
[2022-12-01 01:24] LABS: CALCIUM 9.4 MG/DL (8.5-10.1)
[2022-12-01 01:27] LABS: BILIRUBIN,TOTAL 0.5 MG/DL (0.1-1.0)
[2022-12-01 01:29] LABS: CREATININE SERUM 0.93 MG/DL (0.60-1.30)
--- NOTE | 2022-12-01 05:52 | Diagnostic Imaging Report ---
INDICATION: 27-year-old female with chest pain. COMPARISONS: None FINDINGS: Single view chest shows normal heart, pulmonary vasculature, pleura and diaphragms with no focal opacities. Soft tissues and visualized bony thorax are grossly normal. IMPRESSION: No acute cardiopulmonary changes. Dictated by: Dictated on workstation # [id number]
== END 2022-12-01 01:50 | disposition home or self-care (01) ==
LOC: EDUNIT# 00:40 → ER 00:43
DX: R07.89 Other chest pain (principal)
CPT/HCPCS: 36415; 71045; 80053; 83735; 84484; 84703; 85025; 93005

== ENCOUNTER 2023-05-21 19:46 | Emergency (ER) | payer OTHER ==
[~2023-05-21] VITALS: Ht 167.7 cm; Wt 93.9 kg
[2023-05-21] MEDS ORDERED: diphenhydrAMINE INJ 50 MG/ML VIAL IVP ONE (20:45)
[2023-05-21] MEDS ORDERED: NS IV 1000 ML 1,000 ML IV SCH (20:45)
[2023-05-21] MEDS ORDERED: METOCLOPRAMIDE INJ 10 MG/2 ML IVP ONE (20:45)
--- NOTE | 2023-05-21 20:51 | ED Headache ---
General Chief Complaint: Head/Cervical Problems Stated Complaint: MIGRAINE/13 WEEKS Nursing Triage Note: PT AMB TO ED BY POV WITH SIGNIFICANT OTHER WITH C/O MIGRAINE AND NAUSEA BEGINNING MONDAY. PT REPORTS SHE IS 13 WKS . PT HAS HX MIGRAINES AND HAS BEEN TAKING TYLENOL, BENADRYL, EXCEDRIN, AND ZOFRAN WITH LITTLE RELIEF. LAST DOSE OF EXCEDRIN AND BENADRYL 5.5 HRS AGO, LAST DOSE OF ZOFRAN WAS 6 HRS AGO. Source: patient Exam Limitations: no limitations (PARAS LYONS APRN) History of Present Illness Date Seen by Provider: May 21, 2023 Time Seen by Provider: 20:35 Initial Comments 27-year-old female presents to the ER with complaint of a left-sided frontal migraine. She states that it has been present since . She is here today because the pain has not improved after Benadryl, Excedrin, and Zofran. She states the pain feels like her normal migraine, it is just lasting longer than normal. She reports sensitivity to light and sound. Reports nausea. Denies fevers, cough, chest pain, shortness of air, abdominal pain, vomiting, dysuria. Patient is 13 weeks . (PARAS LYONS APRN) Allergies and Home Medications Allergies Coded Allergies: tomato (Verified Allergy, Severe, ANAPHYLAXIS, 01/06/21) Patient Home Medication List Home Medication List Reviewed: Yes (PARAS LYONS APRN) Docusate Sodium (Dok) 100 Mg Capsule, 100 MG PO BID PRN for CONSTIPATION-1ST LINE Prescribed by: CLYDE CALI on 01/07/212209 Fluoxetine HCl (Prozac) 40 Mg Capsule, 40 MG PO DAILY, (Reported) Entered as Reported by: NOMAN ALDRIDGE on 01/06/212207 Hydrocodone Bit/Acetaminophen (HYDROcodone/APAP 5 MG/325 MG TAB) 1 Tab Tab, 1-2 EA PO Q6HR PRN for PAIN-MODERATE (5-7) Prescribed by: CLYDE CALI on 01/07/212209 Ibuprofen (Ibu) 600 Mg Tablet, 600 MG PO Q6HR Prescribed by: CLYDE CALI on 01/07/212209 Levothyroxine Sodium (Levothyroxine) 175 Mcg Capsule, 175 MCG PO DAILY, (Reported) Entered as Reported by: NOMAN ALDRIDGE on 01/06/212207 Metoclopramide HCl (Reglan) 5 Mg Tablet, 5 MG PO PRN, (Reported) Entered as Reported by: NOMAN ALDRIDGE on 01/06/212209 Vit/Iron Fumarate/FA ( Vitamins Tablet) 1 Each Tablet, 1 EACH PO DAILY, (Reported) Entered as Reported by: NOMAN ALDRIDGE on 01/06/212209 Review of Systems Review of Systems Constitutional: see HPI (PARAS LYONS APRN) Past Oxdrsdd-Fhoruu-Tsjzld Hx Patient Social History Tobacco Use?: No Use of E-Cig and/or Vaping dev: No Substance use?: No Alcohol Use?: No Pt feels they are or have been: No (PARAS LYONS APRN) Immunizations Up To Date Tetanus Booster (TDap): Unknown PED Vaccines UTD: Yes First/Initial COVID19 Vaccinat: unknown Second COVID19 Vaccination Fernando: unknown Third COVID19 Vaccination Date: unknown (APRAS LYONS APRN) Seasonal Allergies Seasonal Allergies: Yes (PARAS LYONS APRN) Past Medical History Surgery/Hospitalization HX: MIGRAINES, HYPOTHYROID, DEPRESSION Surgeries: Yes (NOSE/EAR, SINUS) Respiratory: No Cardiac: No Neurological: Yes Headaches /Migraines Reproductive Disorders: No HIV/AIDS: No Gastrointestinal: No Musculoskeletal: No Fibromyalgia Endocrine: Yes Hypothyroidsim Cancer: No Psychosocial: Yes Anxiety, Depression Integumentary: No Blood Disorders: No Adverse Reaction/Blood Tranf: No (PARAS LYONS APRN) Family Medical History Heart Disease, Migraines, Other Conditions/Hx (PARAS LYONS APRN) Physical Exam Vital Signs Vital Signs - First Documented 05/21/23 19:56 Temp 36.2 Pulse 60 Resp 16 B/P (MAP) 110/64 (79) Pulse Ox 99 O2 Delivery Room Air (TEX MANCERA MD) Vital Signs Capillary Refill : Less Than 3 Seconds (PARAS LYONS APRN) Height, Weight, BMI Height: 5'6.00" Weight: 170lbs. oz. 77.051671gm; 33.00 BMI Method:Stated General Appearance: WD/WN, mild distress HEENT: PERRL/EOMI, TMs normal Neck: full range of motion, supple, normal inspection Cardiovascular: regular rate, rhythm Respiratory: lungs clear, normal breath sounds, no respiratory distress, no accessory muscle use Extremities: normal range of motion, normal inspection Psychiatric: alert Crainal Nerves: normal hearing, normal speech, PERRL, other (2 through 12 cranial nerves normal as tested) Motor/Sensory: no motor deficit, no sensory deficit Skin: normal color, warm/dry (PARAS LYONS APRN) Progress/Results/Core Measures Results/Orders Vital Signs/I&O 05/21/23 05/21/23 19:56 21:50 Temp 36.2 Pulse 60 76 Resp 16 16 B/P (MAP) 110/64 (79) 117/73 Pulse Ox 99 98 O2 Delivery Room Air Room Air (TEX MANCERA MD) Blood Pressure Mean: 79 Progress Progress Note : Progress Note Patient seen and evaluated, resting in bed, mild distress. Will treat migraine with Reglan and Benadryl. Will also administer IV fluids. Due to , other medication options are limited. 2141 patient reports some improvement in pain. Reports nausea has improved. States she would like to go home. Discharge instructions and return precautions provided. (PARAS LYONS APRN) Departure Impression Primary Impression: Migraine Disposition: 01 HOME, SELF-CARE Condition: Stable Departure-Patient Inst. Decision time for Depature: 21:42 (PARAS LYONS APRN) Referrals: NO,LOCAL PHYSICIAN (PCP/Family) Primary Care Physician Patient Instructions: Migraines (DC) Add. Discharge Instructions: Continue taking your home medications as prescribed. Follow-up with your doctor. Return for any new, concerning, or worsening symptoms. All discharge instructions reviewed with patient and/or family. Voiced understanding. ATTENDING PHYSICIAN NOTE: I was physically present as attending physician in the emergency department during the care of this patient, but I was not directly involved in the decision making or delivery of care for this patient. (TEX MANCERA MD) PARAS LYONS APRN May 21, 2023 20:51 TEX MANCERA MD May 23, 2023 07:52
[2023-05-21 21:50] VITALS: BP 117/73
== END 2023-05-21 21:50 | disposition home or self-care (01) ==
LOC: EDUNIT# 19:46 → ER 19:49
DX: O99.351 Diseases of the nervous system complicating pregnancy, first trimester (principal); G43.909 Migraine, unspecified, not intractable, without status migrainosus; Z3A.13 13 weeks gestation of pregnancy

== ENCOUNTER → 2023-07-10 | Outpatient (CLI) | payer OTHER ==
--- NOTE | 2023-07-10 17:51 | Diagnostic Imaging Report ---
INDICATION: Supervision of normal . Anatomy survey. TECHNIQUE: Multiple real-time grayscale images were obtained over the gravid uterus. COMPARISON: None. FINDINGS: A single live intrauterine gestation is visualized in cephalic presentation. heart tones measure 158 BPM. The placenta is posterior and not low lying. The amniotic fluid is normal with the KATERINA measuring 9.8 cm. The cervix is closed and measures 5.1 cm in length. The kidneys, bladder, stomach, brain, four-chamber heart, three-vessel cord, spine, and cord insertion are visualized and have a normal appearance. Views of the adnexa are unremarkable. Biometrical measurements are as follows: Biparietal 4.55 cm, age 19 weeks 6 days. Head circumference 17.22 cm, age 19 weeks 6 days. Abdominal circumference 14.46 cm, age 19 weeks 6 days. Femur length 3.27 cm, age 20 weeks 2 days. Sonographic estimate age: 20 weeks 0 days. Sonographic estimated date of delivery: 11/27/2023. Estimated Weight: 323 gm (+/- 47 gm). LMP percentile: 35%. heart rate: 158 beats per minute. number: 1 of 1. IMPRESSION: 1. Single live intrauterine gestation measuring 20 weeks 0 days with an estimated due date of 11/27/2023. These are within range with the clinical dates. 2. Unremarkable anatomy scan without sonographic abnormalities. Dictated by: Dictated on workstation # [id number]
== END ==
LOC: RAD 11:30
PROVIDERS: ATTEND Nurse Practitioner Women's Health
DX: Z36.9 Encounter for antenatal screening, unspecified (principal); Z3A.20 20 weeks gestation of pregnancy
CPT/HCPCS: 76805